=== PATIENT | male | born 1960 | race Caucasian/White ===

== ENCOUNTER 2018-07-03 09:01 | Outpatient (CLI) | payer BC, SELFPAY ==
[2018-07-03 09:25] LABS: Abs Immature Grans 0.03 k/cumm (0.0-0.09); Absolute Basophil Count 0.03 k/cumm (0.0-0.2); Absolute Eosinophil Count 0.21 k/cumm (0.0-0.7); Absolute Lymphocyte Count 2.05 k/cumm (1.2-3.4); Absolute Monocyte Count 0.68 k/cumm (0.11-0.7); Absolute Neutrophil Count 4.72 k/cumm (1.2-6.7); Basophils % 0.4; Eosinophils % 2.7; HGB 15.1 g/dL (13.5-17.5); Immature Grans % 0.4; Lymphocytes % 26.6; Mean Corp. HGB Concentration 33.6 g/dL (32.0-36.0); Mean Corpuscular Volume 92.4 fL (80-95); Mean Platelet Volume 10.8 fL (8.0-11.0); Monocytes % 8.8; Neutrophils % 61.1; Platelet Count 155 x1000/uL (130-400); RBC 4.87 m/cumm (4.50-6.00); RBC Distribution Width 13.1 % (11.8-14.1); White Blood Cell Count 7.72 k/cumm (4.4-10.8)
[2018-07-03 09:39] LABS: ALT 48 U/L (12-78); AST 28 U/L (15-37); Alkaline Phosphatase 70 U/L (46-116); Anion Gap 8.3 mmol/L (3-11); BUN 18 mg/dL (7-18); Bilirubin, Total 0.6 mg/dL (0.2-1.0); CO2 29.7 mmol/L (21.0-32.0); Calcium 9.1 mg/dL (8.5-10.1); Chloride 99 mmol/L (98-107); Glucose 187 mg/dL (70-100); Potassium 4.1 mmol/L (3.5-5.1); Sodium 137 mmol/L (136-145); Total Protein 7.2 g/dL (6.4-8.2)
[2018-07-04 10:30] LABS: PSA, Diagnostic 6.1 ng/ml (0-3.5)
== END 2018-07-03 09:21 ==
PROVIDERS: PCP Family Medicine; Visit Provider Internal Medicine
DX: C61 Malignant neoplasm of prostate (principal); C77.5 Secondary and unspecified malignant neoplasm of intrapelvic lymph nodes
CPT/HCPCS: 36415; 80053; 84403; 84153; 85025

== ENCOUNTER 2019-02-18 09:50 | Outpatient (CLI) | payer BC, SELFPAY ==
[2019-02-18 10:28] LABS: Abs Immature Grans 0.02 k/cumm (0.0-0.09); Absolute Basophil Count 0.02 k/cumm (0.0-0.2); Absolute Eosinophil Count 0.16 k/cumm (0.0-0.7); Absolute Lymphocyte Count 0.63 k/cumm (1.2-3.4); Absolute Monocyte Count 0.48 k/cumm (0.11-0.7); Absolute Neutrophil Count 3.17 k/cumm (1.2-6.7); Basophils % 0.4; Eosinophils % 3.6; HCT 40.3 % (40.0-50.0); HGB 13.6 g/dL (13.5-17.5); Immature Grans % 0.4; Lymphocytes % 14.1; Mean Corp. HGB Concentration 33.7 g/dL (32.0-36.0); Mean Corpuscular Volume 94.8 fL (80-95); Monocytes % 10.7; Neutrophils % 70.8; Platelet Count 125 x1000/uL (130-400); RBC 4.25 m/cumm (4.50-6.00); RBC Distribution Width 13.2 % (11.8-14.1); White Blood Cell Count 4.48 k/cumm (4.4-10.8)
[2019-02-18 11:21] LABS: ALT 48 U/L (12-78); AST 30 U/L (15-37); Albumin 3.9 g/dL (3.4-5.0); Alkaline Phosphatase 68 U/L (46-116); Anion Gap 9.7 mmol/L (3-11); BUN 18 mg/dL (7-18); Bilirubin, Total 0.4 mg/dL (0.2-1.0); CO2 28.3 mmol/L (21.0-32.0); CREATININE 0.79 mg/dL (0.70-1.30); Calcium 9.5 mg/dL (8.5-10.1); Chloride 98 mmol/L (98-107); Glucose 148 mg/dL (70-100); Potassium 4.3 mmol/L (3.5-5.1); Sodium 136 mmol/L (136-145); Total Protein 6.8 g/dL (6.4-8.2)
[2019-02-19 10:27] LABS: PSA, Diagnostic 0.3 ng/ml (0-3.5)
[2019-02-20 08:16] LABS: Testosterone, Total 7.4 ng/dL (240-950)
== END 2019-02-18 10:10 ==
PROVIDERS: PCP Family Medicine; Visit Provider Internal Medicine
DX: C61 Malignant neoplasm of prostate (principal); C77.5 Secondary and unspecified malignant neoplasm of intrapelvic lymph nodes
CPT/HCPCS: 36415; 80053; 84403; 84153; 85025

== ENCOUNTER 2019-06-12 08:06 | Outpatient (CLI) | payer BC, SELFPAY ==
[2019-06-12 08:43] LABS: Abs Immature Grans 0.03 k/cumm (0.0-0.09); Absolute Basophil Count 0.02 k/cumm (0.0-0.2); Absolute Eosinophil Count 0.18 k/cumm (0.0-0.7); Absolute Lymphocyte Count 0.67 k/cumm (1.2-3.4); Absolute Monocyte Count 0.42 k/cumm (0.11-0.7); Absolute Neutrophil Count 3.62 k/cumm (1.2-6.7); Basophils % 0.4; Eosinophils % 3.6; HCT 40.8 % (40.0-50.0); HGB 13.8 g/dL (13.5-17.5); Immature Grans % 0.6; Lymphocytes % 13.6; Mean Corp. HGB Concentration 33.8 g/dL (32.0-36.0); Mean Corpuscular Hemoglobin 31.7 pg (27.0-33.0); Mean Corpuscular Volume 93.6 fL (80-95); Mean Platelet Volume 9.9 fL (8.0-11.0); Monocytes % 8.5; Neutrophils % 73.3; Platelet Count 147 x1000/uL (130-400); RBC 4.36 m/cumm (4.50-6.00); RBC Distribution Width 13.2 % (11.8-14.1); White Blood Cell Count 4.94 k/cumm (4.4-10.8)
[2019-06-12 09:58] LABS: ALT 50 U/L (16-63); AST 33 U/L (15-37); Albumin 3.9 g/dL (3.4-5.0); Alkaline Phosphatase 70 U/L (46-116); Anion Gap 8.9 mmol/L (3-11); BUN 16 mg/dL (7-18); Bilirubin, Total 0.4 mg/dL (0.2-1.0); CO2 27.1 mmol/L (21.0-32.0); CREATININE 0.79 mg/dL (0.70-1.30); Calcium 9.2 mg/dL (8.5-10.1); Chloride 102 mmol/L (98-107); Glucose 125 mg/dL (70-100); Potassium 4.6 mmol/L (3.5-5.1); Sodium 138 mmol/L (136-145); Total Protein 6.8 g/dL (6.4-8.2)
[2019-06-13 10:26] LABS: PSA, Diagnostic 0.2 ng/ml (0-3.5)
[2019-06-14 14:00] LABS: Testosterone, Total 75 ng/dL (240-950)
== END 2019-06-12 08:26 ==
PROVIDERS: PCP Family Medicine; Visit Provider Internal Medicine
DX: C61 Malignant neoplasm of prostate (principal); C77.5 Secondary and unspecified malignant neoplasm of intrapelvic lymph nodes
CPT/HCPCS: 36415; 80053; 84403; 84153; 85025

== ENCOUNTER 2019-09-12 06:10 | Emergency (ER) | payer BC, SELFPAY ==
[2019-09-12 06:12] VITALS: BP 159/91; PULSE 88; RESP 18; TEMP 36.9; O2SAT 99
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
== END 2019-09-12 06:42 | disposition home or self-care (01) ==
LOC: ER 06:44
PROVIDERS: Emergency Provider Emergency Medicine; PCP Family Medicine
DX: S30.0XXA Contusion of lower back and pelvis, initial encounter (principal); M62.830 Muscle spasm of back; W00.0XXA Fall on same level due to ice and snow, initial encounter; I10 Essential (primary) hypertension
CPT/HCPCS: 99282; 99283

== ENCOUNTER 2019-10-04 15:42 | Outpatient (CLI) | payer BC, SELFPAY ==
[2019-10-04 16:03] LABS: Abs Immature Grans 0.02 k/cumm (0.0-0.09); Absolute Basophil Count 0.03 k/cumm (0.0-0.2); Absolute Eosinophil Count 0.13 k/cumm (0.0-0.7); Absolute Lymphocyte Count 1.18 k/cumm (1.2-3.4); Absolute Monocyte Count 0.74 k/cumm (0.11-0.7); Absolute Neutrophil Count 4.15 k/cumm (1.2-6.7); Basophils % 0.5; Eosinophils % 2.1; HCT 41.5 % (40.0-50.0); HGB 14.3 g/dL (13.5-17.5); Immature Grans % 0.3 %; Lymphocytes % 18.9; Mean Corp. HGB Concentration 34.5 g/dL (32.0-36.0); Mean Corpuscular Hemoglobin 31.4 pg (27.0-33.0); Mean Corpuscular Volume 91.2 fL (80-95); Mean Platelet Volume 10.4 fL (8.0-11.0); Monocytes % 11.8; Neutrophils % 66.4; Platelet Count 200 x1000/uL (130-400); RBC 4.55 m/cumm (4.50-6.00); White Blood Cell Count 6.25 k/cumm (4.4-10.8)
[2019-10-04 16:58] LABS: ALT 68 U/L (16-63); AST 36 U/L (15-37); Albumin 4.4 g/dL (3.4-5.0); Alkaline Phosphatase 116 U/L (46-116); Anion Gap 10.4 mmol/L (3-11); BUN 18 mg/dL (7-18); Bilirubin, Total 0.3 mg/dL (0.2-1.0); CO2 28.6 mmol/L (21.0-32.0); Calcium 9.6 mg/dL (8.5-10.1); Chloride 102 mmol/L (98-107); Glucose 113 mg/dL (74-106); Potassium 4.6 mmol/L (3.5-5.1); Sodium 141 mmol/L (136-145); Total Protein 7.3 g/dL (6.4-8.2)
[2019-10-07 11:30] LABS: PSA, Diagnostic 0.2 ng/mL (0.0-4.5)
[2019-10-08 16:37] LABS: Testosterone, Total <7.0 ng/dL (240-950)
== END 2019-10-04 16:02 ==
PROVIDERS: PCP Family Medicine; Visit Provider Internal Medicine
DX: C61 Malignant neoplasm of prostate (principal); C77.5 Secondary and unspecified malignant neoplasm of intrapelvic lymph nodes
CPT/HCPCS: 36415; 80053; 84403; 84153; 85025

== ENCOUNTER 2019-12-16 00:59 | Outpatient (CLI) | payer BC, SELFPAY ==
--- NOTE | 2019-12-16 09:00 | ETT_ITS ---
APPROVED REPORT Exam: Exercise Treadmill Patient Location: Out-Patient Room/Bed: Stress Nurse: Dora Morrow RN BMI: 27.97 Baseline Rhythm: Sinus Rhythm Indications: Precordial pain. Pt reports he needs clearance to continue taking his Lupron injections. Medical History Medical History: Cancer. , HTN, Hyperlipidemia (bordeline). Cardiac Medications: Candesartan. Amlodipine., Allergies: Honey bee venum Cardiac Risk Factors: HTN, Hyperlipidemia, FHX of CAD (brother cardiac stent). Lupron tx. Pretest Chest Pain Characteristics: No chest pain Exercise History: Physically active Lung Sounds: Clear to auscultation Heart Sounds: Regular Stress Test Details Test: Exercise stress testing was performed using a Samuel protocol. Rest Stress HR Resting HR Supine: 85 bpm Max Heart Rate (APMHR): 160 bpm Resting HR Standin bpm Target HR (85% APMHR): 136 bpm Max HR Achieved: 145 bpm % of APMHR: 90 Recovery HR: 94 bpm HR response to stress: Normal HR response to stress BP Resting BP Supine: 152/80 mmHg Resting BP Standin/82 mmHg Max BP: 188/78 mmHg Recovery BP: 160/72 mmHg BP response to stress: Normal blood pressure response to stress. ECG Resting ECG: Sinus Rhythm Stress ECG: Sinus Tachycardia ST Change: No significant ST segment changes Arrhythmia: Rare PVC Recovery ECG: Sinus Rhythm Recovery ST Change: No significant ST segment changes Clinical Reason for Termination: Fatigue, Leg pain. Stress Symptoms: Leg Fatigue Exercise duration: 08 min01 sec Highest Stage Reached: Stage 3: 3.4 mph at 14% grade. Exercise capacity: 10.16 METs Functional Capacity: Average Capacity Stress ECG Conclusion 1. Good exercise tolerance of 10 METS without symptoms to suggest angina 2. Normal heart rate and blood pressure response to exercise 3. No clinical or electrocardiographic evidence of myocardial ischemia. Patient achieved 90% of pred icted heart rate for age 3. There were no significant dysrhythmias Protocol Used: Samuel Protocol Stress Test Summary STAGE Time (mins) Speed (mph) Grade (%) HR BP SYMPTOMS METS Supine 85 152/80 Standing 94 128/82 1 3 1.7 10 115 144/76 4.6 2 6 2.5 12 132 160/80 7 3 9 3.4 14 145 10.2 12.9 17.2 1 min recovery 125 188/78 6 min recovery 98 172/76 9 min recovery 94 160/72
== END 2019-12-16 01:19 ==
PROVIDERS: PCP Family Medicine; Visit Provider Family Medicine
DX: R07.89 Other chest pain (principal); C61 Malignant neoplasm of prostate; Z79.899 Other long term (current) drug therapy; I10 Essential (primary) hypertension; E78.5 Hyperlipidemia, unspecified; Z82.49 Family history of ischemic heart disease and other diseases of the circulatory system
CPT/HCPCS: 93017

== ENCOUNTER 2020-01-21 03:01 | Outpatient (CLI) | payer BC, SELFPAY ==
[2020-01-21 12:47] LABS: Abs Immature Grans 0.04 k/cumm (0.0-0.09); Absolute Basophil Count 0.02 k/cumm (0.0-0.2); Absolute Eosinophil Count 0.15 k/cumm (0.0-0.7); Absolute Lymphocyte Count 0.94 k/cumm (1.2-3.4); Absolute Monocyte Count 0.63 k/cumm (0.11-0.7); Absolute Neutrophil Count 5.34 k/cumm (1.2-6.7); Basophils % 0.3; Eosinophils % 2.1; HCT 40.9 % (40.0-50.0); HGB 14.3 g/dL (13.5-17.5); Immature Grans % 0.6 %; Lymphocytes % 13.2; Mean Corpuscular Hemoglobin 32.6 pg (27.0-33.0); Mean Corpuscular Volume 93.4 fL (80-95); Monocytes % 8.8; Platelet Count 179 x1000/uL (130-400); RBC 4.38 m/cumm (4.50-6.00); RBC Distribution Width 13.2 % (11.8-14.1); White Blood Cell Count 7.12 k/cumm (4.4-10.8)
[2020-01-21 13:00] LABS: ALT 77 U/L (16-63); AST 78 U/L (15-37); Albumin 4.2 g/dL (3.4-5.0); Alkaline Phosphatase 78 U/L (46-116); Anion Gap 6.8 mmol/L (3-11); BUN 16 mg/dL (7-18); Bilirubin, Total 0.5 mg/dL (0.2-1.0); CO2 29.2 mmol/L (21.0-32.0); CREATININE 1.07 mg/dL (0.70-1.30); Calcium 9.4 mg/dL (8.5-10.1); Chloride 99 mmol/L (98-107); Glucose 133 mg/dL (74-106); Potassium 4.2 mmol/L (3.5-5.1); Sodium 135 mmol/L (136-145); Total Protein 7.6 g/dL (6.4-8.2)
[2020-01-22 17:44] LABS: PSA, Ultrasensitive 0.27 ng/mL (<= 4.5)
[2020-01-24 02:40] LABS: Testosterone, Total 84 ng/dL (240-950)
== END 2020-01-21 03:21 ==
PROVIDERS: PCP Family Medicine; Visit Provider Internal Medicine
DX: C61 Malignant neoplasm of prostate (principal)
CPT/HCPCS: 36415; 80053; 84153; 84403; 85025

== ENCOUNTER 2020-04-27 11:08 | Outpatient (CLI) | payer BC, SELFPAY ==
[2020-04-27 13:38] LABS: Abs Immature Grans 0.05 10^3/uL (0.0-0.06); Absolute Basophil Count 0.03 10^3/uL (0.0-0.2); Absolute Eosinophil Count 0.16 10^3/uL (0.0-0.7); Absolute Lymphocyte Count 0.78 10^3/uL (1.2-3.4); Absolute Monocyte Count 0.42 10^3/uL (0.1-0.8); Absolute Neutrophil Count 3.74 10^3/uL (1.2-6.7); Basophils % 0.6; Eosinophils % 3.1; HCT 42.1 % (40.0-50.0); HGB 14.1 g/dL (13.5-17.5); Lymphocytes % 15.1; MCH 31.7 pg (27.0-33.0); MCHC 33.5 % (32.0-36.0); MCV 94.6 fL (80-95); MPV 10.6 fL (8.0-11.0); Monocytes % 8.1; Neutrophils % 72.1; Nucleated RBC 0 %; Platelet Count 136 10^3/uL (130-400); RBC 4.45 10^6/uL (4.36-5.78); RDW 12.6 % (11.8-14.1); RDW-SD 43.8 fL; WBC 5.18 10^3/uL (4.4-10.8)
[2020-04-27 14:27] LABS: ALT 71 U/L (16-63); AST 82 U/L (15-37); Albumin 4.1 g/dL (3.4-5.0); Alkaline Phosphatase 75 U/L (46-116); Anion Gap 7.3 mmol/L (3-11); BUN 13 mg/dL (7-18); Bilirubin, Total 0.4 mg/dL (0.2-1.0); CO2 28.7 mmol/L (21.0-32.0); CREATININE 0.69 mg/dL (0.70-1.30); Calcium 9.3 mg/dL (8.5-10.1); Chloride 98 mmol/L (98-107); Glucose 145 mg/dL (74-106); Potassium 4.2 mmol/L (3.5-5.1); Sodium 134 mmol/L (136-145)
[2020-04-30 11:01] LABS: Testosterone, Total <7.0 ng/dL (240-950)
== END 2020-04-27 11:28 ==
PROVIDERS: PCP Family Medicine; Visit Provider Internal Medicine
DX: C61 Malignant neoplasm of prostate (principal); C77.5 Secondary and unspecified malignant neoplasm of intrapelvic lymph nodes
CPT/HCPCS: 36415; 80053; 84153; 84403; 85025

== ENCOUNTER 2020-08-10 03:36 | Outpatient (CLI) | payer BC, SELFPAY ==
[2020-08-10 11:44] LABS: Abs Immature Grans 0.03 10^3/uL (0.0-0.06); Absolute Basophil Count 0.03 10^3/uL (0.0-0.2); Absolute Eosinophil Count 0.16 10^3/uL (0.0-0.7); Absolute Lymphocyte Count 0.92 10^3/uL (1.2-3.4); Absolute Monocyte Count 0.54 10^3/uL (0.1-0.8); Absolute Neutrophil Count 4.54 10^3/uL (1.2-6.7); Basophils % 0.5; Eosinophils % 2.6; HCT 41.3 % (40.0-50.0); HGB 13.9 g/dL (13.5-17.5); Immature Grans % 0.5; Lymphocytes % 14.8; MCH 31.8 pg (27.0-33.0); MCHC 33.7 % (32.0-36.0); MCV 94.5 fL (80-95); Monocytes % 8.7; Neutrophils % 72.9; Nucleated RBC 0 %; Platelet Count 129 10^3/uL (130-400); RBC 4.37 10^6/uL (4.36-5.78); RDW 12.8 % (11.8-14.1); RDW-SD 44.1 fL; WBC 6.22 10^3/uL (4.4-10.8)
[2020-08-10 12:51] LABS: ALT 61 U/L (16-63); AST 52 U/L (15-37); Albumin 4.2 g/dL (3.4-5.0); Alkaline Phosphatase 80 U/L (46-116); Anion Gap 12.5 mmol/L (3-11); BUN 14 mg/dL (7-18); Bilirubin, Total 0.5 mg/dL (0.2-1.0); CO2 24.5 mmol/L (21.0-32.0); CREATININE 0.78 mg/dL (0.70-1.30); Chloride 99 mmol/L (98-107); Glucose 165 mg/dL (74-106); Potassium 4.4 mmol/L (3.5-5.1); Sodium 136 mmol/L (136-145); Total Protein 7.1 g/dL (6.4-8.2)
[2020-08-11 14:10] LABS: PSA, Ultrasensitive 0.07 ng/mL (<= 4.5)
[2020-08-13 16:18] LABS: Testosterone, Total 9.1 ng/dL (240-950)
== END 2020-08-10 03:56 ==
PROVIDERS: PCP Family Medicine; Visit Provider Internal Medicine
DX: C61 Malignant neoplasm of prostate (principal); C77.5 Secondary and unspecified malignant neoplasm of intrapelvic lymph nodes
CPT/HCPCS: 36415; 80053; 84153; 84403; 85025

== ENCOUNTER 2020-11-10 02:34 | Outpatient (CLI) | payer BC, SELFPAY ==
[2020-11-10 11:12] LABS: Abs Immature Grans 0.02 10^3/uL (0.0-0.06); Absolute Basophil Count 0.03 10^3/uL (0.0-0.2); Absolute Eosinophil Count 0.16 10^3/uL (0.0-0.7); Absolute Lymphocyte Count 0.84 10^3/uL (1.2-3.4); Absolute Monocyte Count 0.51 10^3/uL (0.1-0.8); Absolute Neutrophil Count 3.93 10^3/uL (1.2-6.7); Basophils % 0.5; Eosinophils % 2.9; HCT 42.2 % (40.0-50.0); HGB 14.5 g/dL (13.5-17.5); Immature Grans % 0.4; Lymphocytes % 15.3; MCH 32.4 pg (27.0-33.0); MCHC 34.4 % (32.0-36.0); MCV 94.2 fL (80-95); MPV 10.7 fL (8.0-11.0); Monocytes % 9.3; Neutrophils % 71.6; Nucleated RBC 0 %; Platelet Count 126 10^3/uL (130-400); RBC 4.48 10^6/uL (4.36-5.78); RDW 12.8 % (11.8-14.1); RDW-SD 44.2 fL; WBC 5.49 10^3/uL (4.4-10.8)
[2020-11-10 11:31] LABS: ALT 66 U/L (16-63); AST 52 U/L (15-37); Albumin 4.1 g/dL (3.4-5.0); Alkaline Phosphatase 84 U/L (46-116); Anion Gap 8.8 mmol/L (3-11); BUN 11 mg/dL (7-18); Bilirubin, Total 0.6 mg/dL (0.2-1.0); CO2 28.2 mmol/L (21.0-32.0); CREATININE 0.8 mg/dL (0.70-1.30); Calcium 9.3 mg/dL (8.5-10.1); Chloride 97 mmol/L (98-107); Glucose 199 mg/dL (74-106); Potassium 4.2 mmol/L (3.5-5.1); Sodium 134 mmol/L (136-145); Total Protein 7.5 g/dL (6.4-8.2)
[2020-11-12 11:46] LABS: PSA, Ultrasensitive 0.07 ng/mL (<= 4.5)
[2020-11-14 11:54] LABS: Testosterone, Total 8.1 ng/dL (240-950)
== END 2020-11-10 02:35 | disposition home or self-care (01) ==
LOC: LBO 02:34
PROVIDERS: PCP Family Medicine; Visit Provider Internal Medicine
DX: C61 Malignant neoplasm of prostate (principal); C77.5 Secondary and unspecified malignant neoplasm of intrapelvic lymph nodes
CPT/HCPCS: 36415; 80053; 84153; 84403; 85025

== ENCOUNTER 2021-02-10 04:27 | Outpatient (CLI) | payer BC, SELFPAY ==
[2021-02-10 09:17] LABS: Abs Immature Grans 0.03 10^3/uL (0.0-0.06); Absolute Basophil Count 0.04 10^3/uL (0.0-0.2); Absolute Eosinophil Count 0.15 10^3/uL (0.0-0.7); Absolute Lymphocyte Count 1.16 10^3/uL (1.2-3.4); Absolute Monocyte Count 0.47 10^3/uL (0.1-0.8); Absolute Neutrophil Count 4.14 10^3/uL (1.2-6.7); Basophils % 0.7; Eosinophils % 2.5; HCT 42.7 % (40.0-50.0); HGB 14.5 g/dL (13.5-17.5); Immature Grans % 0.5; Lymphocytes % 19.4; MCH 32.1 pg (27.0-33.0); MCV 94.5 fL (80-95); MPV 11.1 fL (8.0-11.0); Monocytes % 7.8; Neutrophils % 69.1; Nucleated RBC 0 %; Platelet Count 146 10^3/uL (130-400); RBC 4.52 10^6/uL (4.36-5.78); RDW 13.2 % (11.8-14.1); RDW-SD 45.6 fL; WBC 5.99 10^3/uL (4.4-10.8)
[2021-02-10 10:11] LABS: ALT 97 U/L (16-63); AST 77 U/L (15-37); Albumin 4.2 g/dL (3.4-5.0); Alkaline Phosphatase 83 U/L (46-116); Anion Gap 13.5 mmol/L (3-11); BUN 16 mg/dL (7-18); Bilirubin, Total 0.3 mg/dL (0.2-1.0); CO2 25.5 mmol/L (21.0-32.0); CREATININE 0.8 mg/dL (0.70-1.30); Calcium 9.7 mg/dL (8.5-10.1); Chloride 101 mmol/L (98-107); Glucose 140 mg/dL (74-106); Potassium 4.3 mmol/L (3.5-5.1); Sodium 140 mmol/L (136-145); Total Protein 7.6 g/dL (6.4-8.2)
[2021-02-11 17:32] LABS: PSA, Ultrasensitive 0.07 ng/mL (<= 4.5)
[2021-02-13 11:33] LABS: Testosterone, Total <7.0 ng/dL (240-950)
== END 2021-02-10 04:28 | disposition home or self-care (01) ==
LOC: LBO 04:27
PROVIDERS: PCP Family Medicine; Visit Provider Internal Medicine
DX: C61 Malignant neoplasm of prostate (principal); C77.5 Secondary and unspecified malignant neoplasm of intrapelvic lymph nodes
CPT/HCPCS: 36415; 80053; 84153; 84403; 85025

== ENCOUNTER 2021-05-25 07:38 | Outpatient (CLI) | payer BC, SELFPAY ==
[2021-05-25 08:46] LABS: Abs Immature Grans 0.02 10^3/uL (0.0-0.06); Absolute Basophil Count 0.04 10^3/uL (0.0-0.2); Absolute Eosinophil Count 0.19 10^3/uL (0.0-0.7); Absolute Lymphocyte Count 1.04 10^3/uL (1.2-3.4); Absolute Monocyte Count 0.44 10^3/uL (0.1-0.8); Absolute Neutrophil Count 2.66 10^3/uL (1.2-6.7); Basophils % 0.9; Eosinophils % 4.3; HGB 13.8 g/dL (13.5-17.5); Immature Grans % 0.5; Lymphocytes % 23.7; MCH 32.2 pg (27.0-33.0); MCHC 34.5 % (32.0-36.0); MCV 93.2 fL (80-95); MPV 11.1 fL (8.0-11.0); Neutrophils % 60.6; Nucleated RBC 0 %; Platelet Count 125 10^3/uL (130-400); RBC 4.29 10^6/uL (4.36-5.78); RDW 12.6 % (11.8-14.1); RDW-SD 43.3 fL; WBC 4.39 10^3/uL (4.4-10.8)
[2021-05-25 10:58] LABS: ALT 58 U/L (16-63); AST 42 U/L (15-37); Albumin 4.1 g/dL (3.4-5.0); Alkaline Phosphatase 67 U/L (46-116); Anion Gap 11.4 mmol/L (3-11); BUN 12 mg/dL (7-18); Bilirubin, Total 0.3 mg/dL (0.2-1.0); CO2 27.6 mmol/L (21.0-32.0); CREATININE 0.7 mg/dL (0.70-1.30); Calcium 9.6 mg/dL (8.5-10.1); Chloride 104 mmol/L (98-107); Glucose 129 mg/dL (74-106); Potassium 4.3 mmol/L (3.5-5.1); Sodium 143 mmol/L (136-145)
[2021-05-26 13:09] LABS: PSA, Ultrasensitive 0.05 ng/mL (<= 4.5)
== END 2021-05-25 07:39 | disposition home or self-care (01) ==
PROVIDERS: PCP Family Medicine; Visit Provider Internal Medicine
DX: C61 Malignant neoplasm of prostate (principal); C77.5 Secondary and unspecified malignant neoplasm of intrapelvic lymph nodes
CPT/HCPCS: 36415; 80053; 84153; 84403; 85025

== ENCOUNTER 2021-08-20 03:47 | Outpatient (CLI) | payer BC, SELFPAY ==
[2021-08-20 09:14] LABS: Abs Immature Grans 0.04 10^3/uL (0.0-0.06); Absolute Basophil Count 0.04 10^3/uL (0.0-0.2); Absolute Lymphocyte Count 1.64 10^3/uL (1.2-3.4); Absolute Monocyte Count 0.68 10^3/uL (0.1-0.8); Absolute Neutrophil Count 4.51 10^3/uL (1.2-6.7); Basophils % 0.6; Eosinophils % 2.8; HCT 43.4 % (40.0-50.0); HGB 14.4 g/dL (13.5-17.5); Immature Grans % 0.6; Lymphocytes % 23.1; MCH 31.5 pg (27.0-33.0); MCHC 33.2 % (32.0-36.0); MPV 10.6 fL (8.0-11.0); Monocytes % 9.6; Neutrophils % 63.3; Nucleated RBC 0 %; Platelet Count 169 10^3/uL (130-400); RBC 4.57 10^6/uL (4.36-5.78); RDW-SD 45.3 fL; WBC 7.11 10^3/uL (4.4-10.8)
[2021-08-20 09:29] LABS: ALT 45 U/L (16-63); AST 29 U/L (15-37); Albumin 4.3 g/dL (3.4-5.0); Alkaline Phosphatase 67 U/L (46-116); BUN 21 mg/dL (7-18); Bilirubin, Total 0.3 mg/dL (0.2-1.0); CREATININE 0.8 mg/dL (0.70-1.30); Chloride 100 mmol/L (98-107); Glucose 106 mg/dL (74-106); Potassium 3.9 mmol/L (3.5-5.1); Sodium 136 mmol/L (136-145); Total Protein 7.6 g/dL (6.4-8.2)
[2021-08-21 12:22] LABS: PSA, Ultrasensitive 0.04 ng/mL (<= 4.5)
[2021-08-24 11:40] LABS: Testosterone, Total <7.0 ng/dL (240-950)
== END 2021-08-20 03:48 | disposition home or self-care (01) ==
LOC: LBO 03:48
PROVIDERS: PCP Family Medicine; Visit Provider Internal Medicine
DX: C61 Malignant neoplasm of prostate (principal); C77.5 Secondary and unspecified malignant neoplasm of intrapelvic lymph nodes
CPT/HCPCS: 36415; 80053; 84153; 84403; 85025

== ENCOUNTER 2021-10-13 01:43 | Outpatient (CLI) | payer BC, SELFPAY ==
[2021-10-13 08:33] LABS: Abs Immature Grans 0.02 10^3/uL (0.0-0.06); Absolute Basophil Count 0.04 10^3/uL (0.0-0.2); Absolute Eosinophil Count 0.16 10^3/uL (0.0-0.7); Absolute Lymphocyte Count 1.36 10^3/uL (1.2-3.4); Absolute Monocyte Count 0.55 10^3/uL (0.1-0.8); Absolute Neutrophil Count 4.03 10^3/uL (1.2-6.7); Basophils % 0.6; Eosinophils % 2.6; HCT 40.2 % (40.0-50.0); HGB 13.6 g/dL (13.5-17.5); Immature Grans % 0.3; Lymphocytes % 22.1; MCH 31.8 pg (27.0-33.0); MCHC 33.8 % (32.0-36.0); MCV 93.9 fL (80-95); Monocytes % 8.9; Neutrophils % 65.5; Nucleated RBC 0 %; Platelet Count 142 10^3/uL (130-400); RBC 4.28 10^6/uL (4.36-5.78); RDW-SD 44.3 fL; WBC 6.16 10^3/uL (4.4-10.8)
[2021-10-13 08:50] LABS: ALT 37 U/L (16-63); AST 32 U/L (15-37); Albumin 4.2 g/dL (3.4-5.0); Alkaline Phosphatase 64 U/L (46-116); Anion Gap 11.4 mmol/L (3-11); BUN 12 mg/dL (7-18); Bilirubin, Total 0.4 mg/dL (0.2-1.0); CO2 25.6 mmol/L (21.0-32.0); CREATININE 0.7 mg/dL (0.70-1.30); Calcium 9.6 mg/dL (8.5-10.1); Chloride 99 mmol/L (98-107); Glucose 119 mg/dL (74-106); Potassium 3.7 mmol/L (3.5-5.1); Sodium 136 mmol/L (136-145); Total Protein 7.6 g/dL (6.4-8.2)
[2021-10-14 15:40] LABS: PSA, Ultrasensitive 0.04 ng/mL (<= 4.5)
[2021-10-15 11:30] LABS: Testosterone, Total <7.0 ng/dL (240-950)
== END 2021-10-13 01:44 | disposition home or self-care (01) ==
LOC: LBO 01:44
PROVIDERS: PCP Family Medicine; Visit Provider Internal Medicine
DX: C61 Malignant neoplasm of prostate (principal); C77.5 Secondary and unspecified malignant neoplasm of intrapelvic lymph nodes
CPT/HCPCS: 36415; 80053; 84153; 84403; 85025

== ENCOUNTER 2021-11-17 15:39 | Outpatient (CLI) | payer MEDICAID, SELFPAY ==
[2021-11-17 12:57] LABS: Abs Immature Grans 0.02 10^3/uL (0.0-0.06); Absolute Basophil Count 0.03 10^3/uL (0.0-0.2); Absolute Eosinophil Count 0.09 10^3/uL (0.0-0.7); Absolute Lymphocyte Count 0.98 10^3/uL (1.2-3.4); Absolute Monocyte Count 0.59 10^3/uL (0.1-0.8); Absolute Neutrophil Count 4.53 10^3/uL (1.2-6.7); Basophils % 0.5; Eosinophils % 1.4; HCT 40.1 % (40.0-50.0); HGB 13.9 g/dL (13.5-17.5); Immature Grans % 0.3; Lymphocytes % 15.7; MCH 32.5 pg (27.0-33.0); MCHC 34.7 % (32.0-36.0); MCV 93.7 fL (80-95); MPV 10.4 fL (8.0-11.0); Monocytes % 9.5; Neutrophils % 72.6; Nucleated RBC 0 %; Platelet Count 136 10^3/uL (130-400); RBC 4.28 10^6/uL (4.36-5.78); RDW 13.1 % (11.8-14.1); RDW-SD 45.1 fL; WBC 6.24 10^3/uL (4.4-10.8)
[2021-11-17 14:19] LABS: ALT 30 U/L (16-63); AST 17 U/L (15-37); Albumin 4.1 g/dL (3.4-5.0); Alkaline Phosphatase 57 U/L (46-116); Anion Gap 9.5 mmol/L (3-11); BUN 18 mg/dL (7-18); Bilirubin, Total 0.5 mg/dL (0.2-1.0); CO2 26.5 mmol/L (21.0-32.0); Calcium 8.8 mg/dL (8.5-10.1); Chloride 100 mmol/L (98-107); Glucose 119 mg/dL (74-106); Potassium 4.1 mmol/L (3.5-5.1); Sodium 136 mmol/L (136-145); Total Protein 6.9 g/dL (6.4-8.2)
[2021-11-18 17:48] LABS: PSA, Ultrasensitive 0.04 ng/mL (<= 4.5)
[2021-11-23 10:06] LABS: Testosterone, Total <7.0 ng/dL (240-950)
== END 2021-11-17 15:40 | disposition home or self-care (01) ==
PROVIDERS: PCP Family Medicine; Visit Provider Internal Medicine
DX: C61 Malignant neoplasm of prostate (principal); C77.5 Secondary and unspecified malignant neoplasm of intrapelvic lymph nodes
CPT/HCPCS: 36415; 80053; 84153; 84403; 85025

== ENCOUNTER 2022-02-22 01:52 | Outpatient (CLI) | payer MEDICAID, SELFPAY | END 2022-02-22 01:53 | disposition home or self-care (01) | LOC: LBO 01:52 | PROVIDERS: PCP Family Medicine; Visit Provider Internal Medicine ==

== ENCOUNTER 2022-03-03 03:57 | Outpatient (CLI) | payer MEDICAID, SELFPAY ==
[2022-03-03 12:39] LABS: Abs Immature Grans 0.04 10^3/uL (0.0-0.06); Absolute Basophil Count 0.03 10^3/uL (0.0-0.2); Absolute Eosinophil Count 0.04 10^3/uL (0.0-0.7); Absolute Lymphocyte Count 1.19 10^3/uL (1.2-3.4); Absolute Neutrophil Count 4.16 10^3/uL (1.2-6.7); Basophils % 0.5; Eosinophils % 0.7; HCT 39.8 % (40.0-50.0); HGB 13.5 g/dL (13.5-17.5); Immature Grans % 0.7; MCH 31.3 pg (27.0-33.0); MCHC 33.9 % (32.0-36.0); MCV 92 fL (80-95); MPV 10.6 fL (8.0-11.0); Monocytes % 8.4; Neutrophils % 69.7; Platelet Count 144 10^3/uL (130-400); RBC 4.32 10^6/uL (4.36-5.78); RDW 12.9 % (11.8-14.1); RDW-SD 43.4 fL; WBC 5.96 10^3/uL (4.4-10.8)
[2022-03-03 15:20] LABS: ALT 30 U/L (16-63); AST 26 U/L (15-37); Albumin 4.4 g/dL (3.4-5.0); Alkaline Phosphatase 68 U/L (46-116); BUN 12 mg/dL (7-18); Bilirubin, Total 0.7 mg/dL (0.2-1.0); CREATININE 0.7 mg/dL (0.70-1.30); Calcium 9.6 mg/dL (8.5-10.1); Chloride 99 mmol/L (98-107); Glucose 117 mg/dL (74-106); Potassium 4.5 mmol/L (3.5-5.1); Sodium 135 mmol/L (136-145)
[2022-03-04 18:39] LABS: PSA, Ultrasensitive 0.02 ng/mL (<= 4.5)
[2022-03-06 18:52] LABS: Testosterone, Total <7.0 ng/dL (240-950)
== END 2022-03-03 03:58 | disposition home or self-care (01) ==
LOC: LBO 03:57
PROVIDERS: PCP Family Medicine; Visit Provider Internal Medicine
DX: C61 Malignant neoplasm of prostate (principal); C77.5 Secondary and unspecified malignant neoplasm of intrapelvic lymph nodes
CPT/HCPCS: 36415; 80053; 84153; 84403; 85025

== ENCOUNTER 2022-03-18 13:15 | Outpatient (CLI) | payer MEDICAID, SELFPAY ==
--- NOTE | 2022-03-18 13:15 | RT.EKG_ITS ---
APPROVED REPORT Exam: Resting ECG Reason for Exam: HTN Patient Location: O HR:82 bpm ECG Measurements Heart Rate 82 AXIS NV 133 P 44 QRSd 98 QRS 26 QT 391 T 21 QTc 457 Conclusion Sinus rhythm...normal P axis, V-rate 50- 99 Baseline wander in lead(s) II,III,aVF,V1,V2,V3,V4,V5,V6 Artifact, otherwise normal
== END 2022-03-18 13:16 | disposition home or self-care (01) ==
LOC: DI.CARD 13:16
PROVIDERS: PCP Family Medicine; Visit Provider Internal Medicine Cardiovascular Disease
DX: I10 Essential (primary) hypertension (principal)
CPT/HCPCS: 93010

== ENCOUNTER 2022-06-03 12:22 | Outpatient (CLI) | payer MEDICAID, SELFPAY ==
[2022-06-03 10:53] LABS: Abs Immature Grans 0.03 10^3/uL (0.0-0.06); Absolute Basophil Count 0.04 10^3/uL (0.0-0.2); Absolute Eosinophil Count 0.18 10^3/uL (0.0-0.7); Absolute Lymphocyte Count 1.42 10^3/uL (1.2-3.4); Absolute Neutrophil Count 2.99 10^3/uL (1.2-6.7); Basophils % 0.8; Eosinophils % 3.5; HCT 39.5 % (40.0-50.0); HGB 13.9 g/dL (13.5-17.5); Immature Grans % 0.6; Lymphocytes % 27.5; MCH 32.3 pg (27.0-33.0); MCHC 35.2 % (32.0-36.0); MCV 92 fL (80-95); MPV 10.3 fL (8.0-11.0); Monocytes % 9.7; Neutrophils % 57.9; Platelet Count 141 10^3/uL (130-400); RBC 4.31 10^6/uL (4.36-5.78); RDW 12.5 % (11.8-14.1); RDW-SD 42.1 fL; WBC 5.16 10^3/uL (4.4-10.8)
[2022-06-03 11:22] LABS: ALT 29 U/L (16-63); AST 27 U/L (15-37); Alkaline Phosphatase 66 U/L (46-116); Anion Gap 8.5 mmol/L (3-11); BUN 14 mg/dL (7-18); Bilirubin, Total 0.7 mg/dL (0.2-1.0); CO2 27.5 mmol/L (21.0-32.0); CREATININE 0.9 mg/dL (0.70-1.30); Calcium 9.6 mg/dL (8.5-10.1); Chloride 99 mmol/L (98-107); Estimated GFR 96.57 (mL/min/1.73m2); Glucose 129 mg/dL (74-106); Potassium 3.7 mmol/L (3.5-5.1); Sodium 135 mmol/L (136-145); Total Protein 7.2 g/dL (6.4-8.2)
[2022-06-07 09:57] LABS: PSA, Ultrasensitive <0.01 ng/mL (<= 4.5)
[2022-06-08 16:21] LABS: Testosterone, Total <7.0 ng/dL (240-950)
== END 2022-06-03 12:23 | disposition home or self-care (01) ==
LOC: LBO 12:26
PROVIDERS: PCP Family Medicine; Visit Provider Nurse Practitioner Family
DX: C61 Malignant neoplasm of prostate (principal); C77.5 Secondary and unspecified malignant neoplasm of intrapelvic lymph nodes
CPT/HCPCS: 36415; 80053; 84153; 84403; 85025

== ENCOUNTER 2022-06-10 14:14 | Outpatient (REF) | payer MEDICAID, SELFPAY ==
--- NOTE | 2022-06-10 14:00 | PAPNONF_PTH ---
PATIENT: Rodolfo Costello LOC: [facility] U#:[id number] AGE/SX: 61/M ROOM: RE06/10/[address]: Cory Washington MD : [id number] BED: DIS: 06/10/2022 SPEC #: [id number] RECD: 06/10/22 18:37 STATUS: JOCELYN REQ #: [id number] PARI: 06/10/22 14:[address]: Cory Washington DEPT: [facility] Cytology RECD BY: Marilyn Bonilla ENTERED: 06/10/22 18:38 SP TYPE: JAK MARTINS DR: Trey Giraldo Tissues: 1 - BODY FLUID CYTO(SPUTUM/URINE)[facility] Procedures: BODY FLUID CYTO(URINE/SPUTUM) Comments: [id number] (TOTAL VOLUME = 30 ml) (30 ml URINE & 30 ml CYTOLYT ADDED)
== END 2022-06-10 14:15 | disposition home or self-care (01) ==
LOC: LBN 14:14
PROVIDERS: PCP Family Medicine; Visit Provider Urology
DX: R31.0 Gross hematuria (principal)
CPT/HCPCS: 88104

== ENCOUNTER 2022-09-06 02:12 | Outpatient (CLI) | payer MEDICAID, SELFPAY ==
[2022-09-06 13:30] LABS: Abs Immature Grans 0.04 10^3/uL (0.0-0.06); Absolute Basophil Count 0.03 10^3/uL (0.0-0.2); Absolute Eosinophil Count 0.13 10^3/uL (0.0-0.7); Absolute Lymphocyte Count 1.22 10^3/uL (1.2-3.4); Absolute Monocyte Count 0.49 10^3/uL (0.1-0.8); Absolute Neutrophil Count 2.96 10^3/uL (1.2-6.7); Basophils % 0.6; Eosinophils % 2.7; HGB 14.1 g/dL (13.5-17.5); Immature Grans % 0.8; Lymphocytes % 25.1; MCH 31.3 pg (27.0-33.0); MCHC 34.4 % (32.0-36.0); MCV 91 fL (80-95); MPV 10.2 fL (8.0-11.0); Monocytes % 10.1; Neutrophils % 60.7; Platelet Count 167 10^3/uL (130-400); RDW-SD 43.2 fL; WBC 4.87 10^3/uL (4.4-10.8)
[2022-09-06 13:52] LABS: ALT 21 U/L (16-63); AST 20 U/L (15-37); Albumin 4.1 g/dL (3.4-5.0); Alkaline Phosphatase 116 U/L (46-116); Anion Gap 6.5 mmol/L (3-11); BUN 16 mg/dL (7-18); Bilirubin, Total 0.5 mg/dL (0.2-1.0); CO2 31.5 mmol/L (21.0-32.0); CREATININE 0.9 mg/dL (0.70-1.30); Calcium 9.5 mg/dL (8.5-10.1); Chloride 101 mmol/L (98-107); Estimated GFR 95.97 (mL/min/1.73m2); Glucose 121 mg/dL (74-106); Potassium 3.7 mmol/L (3.5-5.1); Sodium 139 mmol/L (136-145); Total Protein 7.4 g/dL (6.4-8.2)
[2022-09-07 19:33] LABS: PSA, Ultrasensitive <0.01 ng/mL (<= 4.5)
[2022-09-10 01:22] LABS: Testosterone, Total <7.0 ng/dL (240-950)
== END 2022-09-06 02:13 | disposition home or self-care (01) ==
LOC: LBO 02:12
PROVIDERS: PCP Family Medicine; Visit Provider Nurse Practitioner Family
DX: C61 Malignant neoplasm of prostate (principal); C77.5 Secondary and unspecified malignant neoplasm of intrapelvic lymph nodes
CPT/HCPCS: 36415; 80053; 84153; 84403; 85025

== ENCOUNTER 2022-11-25 11:20 | Outpatient (CLI) | payer MEDICAID, SELFPAY ==
[2022-11-25 11:29] LABS: Abs Immature Grans 0.04 10^3/uL (0.0-0.06); Absolute Basophil Count 0.05 10^3/uL (0.0-0.2); Absolute Eosinophil Count 0.03 10^3/uL (0.0-0.7); Absolute Lymphocyte Count 1.48 10^3/uL (1.2-3.4); Absolute Monocyte Count 0.49 10^3/uL (0.1-0.8); Absolute Neutrophil Count 3.06 10^3/uL (1.2-6.7); Eosinophils % 0.6; HCT 40.9 % (40.0-50.0); HGB 14.2 g/dL (13.5-17.5); Immature Grans % 0.8; Lymphocytes % 28.7; MCH 31.2 pg (27.0-33.0); MCHC 34.7 % (32.0-36.0); MCV 90 fL (80-95); Monocytes % 9.5; Neutrophils % 59.4; Platelet Count 142 10^3/uL (130-400); RBC 4.55 10^6/uL (4.36-5.78); RDW 12.5 % (11.8-14.1); RDW-SD 41.1 fL; WBC 5.15 10^3/uL (4.4-10.8)
[2022-11-25 12:02] LABS: ALT 25 U/L (16-63); AST 12 U/L (15-37); Albumin 4.2 g/dL (3.4-5.0); Alkaline Phosphatase 70 U/L (46-116); Anion Gap 9.2 mmol/L (3-11); BUN 18 mg/dL (7-18); Bilirubin, Total 0.4 mg/dL (0.2-1.0); CO2 27.8 mmol/L (21.0-32.0); CREATININE 0.8 mg/dL (0.70-1.30); Calcium 9.2 mg/dL (8.5-10.1); Chloride 100 mmol/L (98-107); Estimated GFR 99.44 (mL/min/1.73m2); Glucose 139 mg/dL (74-106); Potassium 4.2 mmol/L (3.5-5.1); Sodium 137 mmol/L (136-145); Total Protein 7.2 g/dL (6.4-8.2)
[2022-11-28 12:37] LABS: PSA, Ultrasensitive <0.01 ng/mL (<= 4.5)
[2022-11-30 16:10] LABS: Testosterone, Total <7.0 ng/dL (240-950)
== END 2022-11-25 11:21 | disposition home or self-care (01) ==
LOC: LBO 11:21
PROVIDERS: PCP Family Medicine; Visit Provider Nurse Practitioner Family
DX: C61 Malignant neoplasm of prostate (principal); C77.5 Secondary and unspecified malignant neoplasm of intrapelvic lymph nodes
CPT/HCPCS: 36415; 80053; 84153; 84403; 85025

== ENCOUNTER 2023-02-17 13:25 | Outpatient (CLI) | payer MEDICAID, SELFPAY ==
[2023-02-17 13:32] LABS: Abs Immature Grans 0.04 10^3/uL (0.0-0.06); Absolute Basophil Count 0.04 10^3/uL (0.0-0.2); Absolute Eosinophil Count 0.06 10^3/uL (0.0-0.7); Absolute Lymphocyte Count 1.12 10^3/uL (1.2-3.4); Absolute Monocyte Count 0.54 10^3/uL (0.1-0.8); Absolute Neutrophil Count 5.07 10^3/uL (1.2-6.7); Basophils % 0.6; Eosinophils % 0.9; HCT 41.6 % (40.0-50.0); HGB 14.3 g/dL (13.5-17.5); Immature Grans % 0.6; Lymphocytes % 16.3; MCH 31.5 pg (27.0-33.0); MCHC 34.4 % (32.0-36.0); MCV 92 fL (80-95); MPV 10.3 fL (8.0-11.0); Monocytes % 7.9; Neutrophils % 73.7; Platelet Count 172 10^3/uL (130-400); RBC 4.54 10^6/uL (4.36-5.78); RDW 12.6 % (11.8-14.1); RDW-SD 42.8 fL; WBC 6.87 10^3/uL (4.4-10.8)
[2023-02-17 13:59] LABS: ALT 22 U/L (16-63); AST 15 U/L (15-37); Albumin 4.6 g/dL (3.4-5.0); Alkaline Phosphatase 75 U/L (46-116); Anion Gap 10.5 mmol/L (3-11); BUN 18 mg/dL (7-18); Bilirubin, Total 0.6 mg/dL (0.2-1.0); CO2 26.5 mmol/L (21.0-32.0); Calcium 9.9 mg/dL (8.5-10.1); Chloride 100 mmol/L (98-107); Estimated GFR 84.57 (mL/min/1.73m2); Glucose 105 mg/dL (74-106); Potassium 3.9 mmol/L (3.5-5.1); Sodium 137 mmol/L (136-145); Total Protein 7.7 g/dL (6.4-8.2)
[2023-02-20 10:56] LABS: PSA, Ultrasensitive <0.01 ng/mL (<= 4.5)
[2023-02-22 16:16] LABS: Testosterone, Total <7.0 ng/dL (240-950)
== END 2023-02-17 13:26 | disposition home or self-care (01) ==
LOC: LBO 13:25
PROVIDERS: Referring Provider Internal Medicine; Visit Provider Nurse Practitioner Family
DX: C61 Malignant neoplasm of prostate (principal); C77.5 Secondary and unspecified malignant neoplasm of intrapelvic lymph nodes
CPT/HCPCS: 36415; 80053; 84153; 84403; 85025

== ENCOUNTER 2023-05-17 01:59 | Outpatient (CLI) | payer MEDICAID, SELFPAY ==
[2023-05-17 11:29] LABS: Abs Immature Grans 0.02 10^3/uL (0.0-0.06); Absolute Basophil Count 0.04 10^3/uL (0.0-0.2); Absolute Eosinophil Count 0.17 10^3/uL (0.0-0.7); Absolute Monocyte Count 0.44 10^3/uL (0.1-0.8); Absolute Neutrophil Count 2.77 10^3/uL (1.2-6.7); Basophils % 0.9; Eosinophils % 3.7; HCT 38.9 % (40.0-50.0); HGB 13.3 g/dL (13.5-17.5); Immature Grans % 0.4; Lymphocytes % 24.2; MCH 30.8 pg (27.0-33.0); MCHC 34.2 % (32.0-36.0); MCV 90 fL (80-95); MPV 10.3 fL (8.0-11.0); Monocytes % 9.7; Neutrophils % 61.1; Platelet Count 149 10^3/uL (130-400); RBC 4.32 10^6/uL (4.36-5.78); RDW 12.6 % (11.8-14.1); RDW-SD 41.5 fL; WBC 4.54 10^3/uL (4.4-10.8)
[2023-05-17 12:05] LABS: ALT 17 U/L (16-63); AST 14 U/L (15-37); Albumin 3.9 g/dL (3.4-5.0); Alkaline Phosphatase 75 U/L (46-116); Anion Gap 10.6 mmol/L (3-11); BUN 13 mg/dL (7-18); Bilirubin, Total 0.5 mg/dL (0.2-1.0); CO2 26.4 mmol/L (21.0-32.0); CREATININE 0.9 mg/dL (0.70-1.30); Calcium 9.4 mg/dL (8.5-10.1); Chloride 101 mmol/L (98-107); Estimated GFR 95.97 (mL/min/1.73m2); Glucose 150 mg/dL (74-106); Potassium 3.8 mmol/L (3.5-5.1); Sodium 138 mmol/L (136-145); Total Protein 6.9 g/dL (6.4-8.2)
[2023-05-18 17:18] LABS: PSA, Ultrasensitive <0.01 ng/mL (<= 4.5)
[2023-05-20 19:08] LABS: Testosterone, Total <7.0 ng/dL (240-950)
== END 2023-05-17 02:00 | disposition home or self-care (01) ==
PROVIDERS: Visit Provider Nurse Practitioner Adult Health
DX: C61 Malignant neoplasm of prostate (principal); C77.5 Secondary and unspecified malignant neoplasm of intrapelvic lymph nodes; Z79.818 Long term (current) use of other agents affecting estrogen receptors and estrogen levels
CPT/HCPCS: 80053; 84153; 84403; 85025

== ENCOUNTER 2023-08-03 19:42 | Inpatient (IN) | payer MEDICAID, SELFPAY ==
[2023-08-03] VITALS (51 sets, daily range): BP systolic 125–210; BP diastolic 69–188; PULSE 91–189; RESP 13–30; TEMP 36.9; O2SAT 95–100
--- NOTE | 2023-08-03 19:45 | RT.EKG_ITS ---
APPROVED REPORT Exam: Resting ECG Reason for Exam: Palpitations Patient Location: E HR:158 bpm ECG Measurements Heart Rate 158 AXIS AK 115 P 46 QRSd 89 QRS 66 QT 296 T 263 QTc 480 Conclusion Supraventricular tachycardia...V-rate>(220-age), QRSd<120 Repolarization abnormality, prob rate related...ST dep, T neg, tachycardia
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
[2023-08-03] MEDS: dilTIAZem 25 MG/5 ML VIAL 10 MG IVP ×2 (20:19→20:28)
[2023-08-03 20:24] LABS: Abs Immature Grans 0.01 10^3/uL (0.0-0.06); Absolute Basophil Count 0.03 10^3/uL (0.0-0.2); Absolute Lymphocyte Count 0.99 10^3/uL (1.2-3.4); Absolute Neutrophil Count 4.03 10^3/uL (1.2-6.7); Basophils % 0.5; Eosinophils % 1.8; HCT 41.6 % (40.0-50.0); HGB 14.3 g/dL (13.5-17.5); Immature Grans % 0.2; Lymphocytes % 17.5; MCH 31.2 pg (27.0-33.0); MCHC 34.4 % (32.0-36.0); MCV 91 fL (80-95); MPV 11.7 fL (8.0-11.0); Monocytes % 8.8; Neutrophils % 71.2; Platelet Count 148 10^3/uL (130-400); RBC 4.58 10^6/uL (4.36-5.78); RDW 13.1 % (11.8-14.1); RDW-SD 43.4 fL; WBC 5.66 10^3/uL (4.4-10.8)
[2023-08-03 20:45] LABS: ALT 22 U/L (16-63); AST 14 U/L (15-37); Albumin 4.3 g/dL (3.4-5.0); Alkaline Phosphatase 80 U/L (46-116); Anion Gap 8.8 mmol/L (3-11); BUN 19 mg/dL (7-18); Bilirubin, Total 0.4 mg/dL (0.2-1.0); CO2 27.2 mmol/L (21.0-32.0); CREATININE 1.3 mg/dL (0.70-1.30); Calcium 9.9 mg/dL (8.5-10.1); Chloride 103 mmol/L (98-107); Estimated GFR 61.35 (mL/min/1.73m2); Glucose 181 mg/dL (74-106); Magnesium 2.1 mg/dL (1.8-2.4); Potassium 3.3 mmol/L (3.5-5.1); Sodium 139 mmol/L (136-145); Total Protein 7.8 g/dL (6.4-8.2); Troponin I < 50 ng/L (<or=60)
[2023-08-03] MEDS: dilTIAZem CD 120 MG CAPCR PO (20:55)
[2023-08-03] MEDS: dilTIAZem 125 MG in Normal Saline 100 ML IV (21:29)
[2023-08-03] MEDS: dilTIAZem 25 MG/5 ML VIAL 20 MG IVP (21:31)
[2023-08-03] MEDS: Metoprolol 5 MG/5 ML VIAL IVP (22:10)
[2023-08-03] MEDS: Potassium Chloride Liquid 20 MEQ PKT PO (23:05)
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
[2023-08-03 23:33] LABS: Source Nasal/Nares
[2023-08-04] VITALS (71 sets, daily range): BP systolic 116–162; BP diastolic 69–100; PULSE 59–131; RESP 11–24; TEMP 36.3–37.3; O2SAT 90–99
[2023-08-04 00:02] LABS: COVID-19 PCR Negative (Negative)
[2023-08-04 00:07] LABS: Troponin I < 50 ng/L (<or=60)
--- NOTE | 2023-08-04 00:07 | W.PC.ACHO ---
Registration Status: REG ER Primary Language: Preferred Language: Bulgarian ED Information & Data Chief Complaint Palpitatns 08/03/23 20:22 Triage Note has a racing heart. monday08/03/23 19:47 fell on his hot wood stove while carrying firewood.- caught inside of his L elbow - burned inside of upper L arm.has stage 4 prostate ca. Most Recent Vital Signs Temperature 36.9 C 08/03/23 19:47 Temperature Source Temporal Artery Scan 08/03/23 19:47 Pulse 121 H 08/04/23 00:01 Pulse 117 H 08/04/23 00:01 Respiratory Rate 14 08/04/23 00:01 Respiratory Effort Normal 08/03/23 19:55 Blood Pressure 140/95 H 08/04/23 00:01 Blood Pressure Mean 104 08/04/23 00:01 Blood Pressure Position Sitting 08/03/23 19:47 Pulse Oximetry 96 08/04/23 00:01 Oxygen Delivery Method Room Air 08/03/23 19:47 Oxygen Flow Rate 0 08/03/23 19:47 Pain Level 6 08/03/23 19:47 Allergies venom-honey bee [bee venom (honey bee)] Allergy (Severe, Verified 08/03/23 19:56) anaphylaxis Active Medications Generic Name Dose Route Start Last Admin Trade Name Freq PRN Reason Stop Dose Admin Diltiazem HCl 125 mg/ Sodium 125 mls @ 5 mls/hr 08/03/23 21:30 08/03/23 22:02 Chloride IV 10 mg/hr INFUSION YOLANDA 10 mls/hr Infusion 5 MG/HR IV IV Catheter Type [Right Saline Lock Antecubital] IV Catheter Type [Left Saline Lock Antecubital] IV Catheter Gauge [Right 18 Antecubital] IV Catheter Gauge [Left 18 Antecubital] Diet Orders Category Date Time Status Heart Healthy Eating [DIET] Nutrition 08/04/23 Breakfast Active Diagnostics 08/04/23 08/03/23 08/03/23 Range/Units 05:35 23:30 22:48 WBC Pending (4.4-10.8) 10^3/uL RBC Pending (4.36-5.78) 10^6/uL Hgb Pending (13.5-17.5) g/dL Hct Pending (40.0-50.0) % MCV Pending (80-95) fL MCH Pending (27.0-33.0) pg MCHC Pending (32.0-36.0) % RDW Pending (11.8-14.1) % Plt Count Pending (130-400) 10^3/uL MPV Pending (8.0-11.0) fL Immature Gran % Neutrophils % Lymphocytes % Monocytes % Eosinophils % Basophils % Nucleated RBC % (0.0-0.3) % Absolute Neutrophils (1.2-6.7) 10^3/uL Absolute Lymphocytes (1.2-3.4) 10^3/uL Absolute Monocytes (0.1-0.8) 10^3/uL Absolute Eosinophils (0.0-0.7) 10^3/uL Absolute Basophils (0.0-0.2) 10^3/uL Sodium Pending (136-145) mmol/L Potassium Pending Cancelled (3.5-5.1) mmol/L Chloride Pending (98-107) mmol/L Carbon Dioxide Pending (21.0-32.0) mmol/L Anion Gap Pending (3-11) mmol/L BUN Pending (7-18) mg/dL Creatinine Pending (0.70-1.30) mg/dL Est GFR (CKD-EPI 2020) Pending (mL/min/1.73m2) Glucose Pending (74-106) mg/dL Calcium Pending (8.5-10.1) mg/dL Magnesium (1.8-2.4) mg/dL Total Bilirubin Pending (0.2-1.0) mg/dL AST Pending (15-37) U/L ALT Pending (16-63) U/L Alkaline Phosphatase Pending (46-116) U/L Troponin I Pending Pending (<or=60) ng/L Total Protein Pending (6.4-8.2) g/dL Albumin Pending (3.4-5.0) g/dL COVID-19 Source Nasal/Nares SARS-CoV-2 (PCR) Pending Add-On Test Request Pending 08/03/23 Range/Units 20:18 WBC 5.66 (4.4-10.8) 10^3/uL RBC 4.58 (4.36-5.78) 10^6/uL Hgb 14.3 (13.5-17.5) g/dL Hct 41.6 (40.0-50.0) % MCV 91 (80-95) fL MCH 31.2 (27.0-33.0) pg MCHC 34.4 (32.0-36.0) % RDW 13.1 (11.8-14.1) % Plt Count 148 (130-400) 10^3/uL MPV 11.7 H (8.0-11.0) fL Immature Gran % 0.2 Neutrophils % 71.2 Lymphocytes % 17.5 Monocytes % 8.8 Eosinophils % 1.8 Basophils % 0.5 Nucleated RBC % 0.0 (0.0-0.3) % Absolute Neutrophils 4.03 (1.2-6.7) 10^3/uL Absolute Lymphocytes 0.99 L (1.2-3.4) 10^3/uL Absolute Monocytes 0.50 (0.1-0.8) 10^3/uL Absolute Eosinophils 0.10 (0.0-0.7) 10^3/uL Absolute Basophils 0.03 (0.0-0.2) 10^3/uL Sodium 139 (136-145) mmol/L Potassium 3.3 L (3.5-5.1) mmol/L Chloride 103 (98-107) mmol/L Carbon Dioxide 27.2 (21.0-32.0) mmol/L Anion Gap 8.8 (3-11) mmol/L BUN 19 H (7-18) mg/dL Creatinine 1.3 (0.70-1.30) mg/dL Est GFR (CKD-EPI 2020) 61.35 (mL/min/1.73m2) Glucose 181 H (74-106) mg/dL Calcium 9.9 (8.5-10.1) mg/dL Magnesium 2.1 (1.8-2.4) mg/dL Total Bilirubin 0.4 (0.2-1.0) mg/dL AST 14 L (15-37) U/L ALT 22 (16-63) U/L Alkaline Phosphatase 80 (46-116) U/L Troponin I < 50 (<or=60) ng/L Total Protein 7.8 (6.4-8.2) g/dL Albumin 4.3 (3.4-5.0) g/dL COVID-19 Source SARS-CoV-2 (PCR) Add-On Test Request Intake and Output - 24 Hour Total 08/03/23 19:42 thru 08/03/23 22:02 Intake Total 2.75 Output Total 200 Balance -197.25 Weight 83.461 kg Intake: IV 2.75 Output: Urine 200 Falls Risk Assessment History of Falls No History 08/03/23 21:24 Contributing Factors No Factors 08/03/23 21:24 Ambulatory Aids Independent 08/03/23 21:24 Tubes/Lines None 08/03/23 21:24 Gait Evaluation No gait disturbance 08/03/23 21:24 Cognition No cognitive impairment 08/03/23 21:24 Fall Total Score 0 08/03/23 21:24 Level of Risk Standard/Low Risk 08/03/23 21:24 Problems (Last Reviewed 08/03/23 @ 23:09 by Morgan Corona) Prostate cancer (Chronic) Atrial fibrillation with RVR (Acute) Atrial fibrillation, new onset (Acute) HTN (hypertension) (Chronic) v v v v v v v v v Sending and/or Receiving Nurses: Please use comment section below to note any information pertinent to the patient hand-off not included above. Information / Comments: burn left arm and hip burn form fall Monday on wood stove - cleaned and dressed in ed. 110-140 hr cardizem bolus and drip running Report received from:London Maloney RN all questions answered
--- NOTE | 2023-08-04 01:45 | RT.EKG_ITS ---
APPROVED REPORT Exam: Resting ECG Reason for Exam: coverts to sinus in ed before admit to icu Patient Location: I HR:71 bpm ECG Measurements Heart Rate 71 AXIS AR 164 P 17 QRSd 98 QRS 33 QT 427 T 47 QTc 465 Conclusion Sinus rhythm...normal P axis, V-rate 50- 99 Normal Electrocardiogram
[2023-08-04] MEDS: Metoprolol 12.5 MG TAB 25 MG PO ×4 (02:02→23:13)
[2023-08-04 02:54] LABS: Lab Add On Test DONE
[2023-08-04 06:54] LABS: HCT 39.1 % (40.0-50.0); HGB 13.4 g/dL (13.5-17.5); MCH 31.4 pg (27.0-33.0); MCHC 34.3 % (32.0-36.0); MCV 92 fL (80-95); Platelet Count 111 10^3/uL (130-400); RBC 4.27 10^6/uL (4.36-5.78); RDW 13.2 % (11.8-14.1); RDW-SD 44.2 fL; WBC 6.57 10^3/uL (4.4-10.8)
[2023-08-04 07:18] LABS: ALT 16 U/L (16-63); AST 18 U/L (15-37); Albumin 3.4 g/dL (3.4-5.0); Alkaline Phosphatase 59 U/L (46-116); Anion Gap 12.3 mmol/L (3-11); BUN 13 mg/dL (7-18); Bilirubin, Total 0.5 mg/dL (0.2-1.0); CO2 22.7 mmol/L (21.0-32.0); CREATININE 0.7 mg/dL (0.70-1.30); Calcium 9.1 mg/dL (8.5-10.1); Chloride 101 mmol/L (98-107); Estimated GFR 102.89 (mL/min/1.73m2); Glucose 121 mg/dL (74-106); Potassium 3.6 mmol/L (3.5-5.1); Sodium 136 mmol/L (136-145); Total Protein 6.4 g/dL (6.4-8.2); Troponin I < 50 ng/L (<or=60)
--- NOTE | 2023-08-04 08:00 | DI.US_ITS ---
APPROVED REPORT EXAM: Comprehensive 2D, Doppler, and color-flow Echocardiogram Patient Location: In-Patient Room/Bed: 220 Escalator Constructor: Cam Fletcher RDCS (AE) Indications: new onset afib with RVR Other Information Study Quality: Adequate Conclusion Normal left ventricular wall thickness and chamber size. Ejection fraction is 55 to 60%. Wall motio n is normal Normal right ventricular size and systolic function Both atria are normal in size Mild mitral annular calcification, mild mitral regurgitation Wall motion Left Ventricle The left ventricle is normal size. The left ventricular systolic function is normal. The left ventric ular ejection fraction is within the normal range. There is normal left ventricular wall thickness. T here is normal LV segmental wall motion. There is no ventricular septal defect visualized. LVEF is 55 -60%. Right Ventricle The right ventricle is normal size. The right ventricular systolic function is normal. Unable to asse ss PA pressure. Atria The left atrium size is normal. The right atrium size is normal. The interatrial septum is intact wit h no evidence for an atrial septal defect. Aortic Valve The aortic valve is normal in structure. Aortic valve is trileaflet. There is no aortic valvular sten osis. No aortic regurgitation is present. Mitral Valve The mitral valve is normal in structure. Mild mitral annular calcification. No evidence of mitral devon ve stenosis. Mild mitral regurgitation. Tricuspid Valve The tricuspid valve is normal in structure. There is no tricuspid valve stenosis. Trace tricuspid reg urgitation. Pulmonic Valve The pulmonary valve is normal in structure. There is no pulmonic valvular stenosis. There is no pulmo kervin valvular regurgitation. Great Vessels The aortic root is normal in size. The ascending aorta is normal in size. Aortic arch is normal in ca liber. IVC is normal in size and collapses >50% with inspiration. Pericardium There is no pericardial effusion. 2D Dimensions IVSD d PLAX 0.78 cm M: 0.6-1.2 Ao Root d 3.29 cm M: 3.1 - 3.7 LVPW d PLAX 0.98 cm M: 0.6 - 1.2 Ao Asc Diam d 3.44 cm M: 2.6 - 3.4 LVID d PLAX 5.48 cm M: 4.2 - 5.8 LVDs 3.72 cm M: 2.5 - 4.0 LV EF Teichholz 59.7 % FS 32.09 % LV EDV (Teich) 146.5 mL LV ESV (Teich) 59.1 mL Stroke Vol Index (Teich) 43.50 Auto EF LV EDV A4C 126.2 mL LV EDV A2C 108.4 mL LV EDV BP LV ESV A4C 54.8 mL LV ESV A2C 47.4 mL LV ESV BP LVEF(%) A4C 56.6 % LVEF(%) A2C 56.2 % LVEF(%) BP LV SV A4C 71.5 ml LV SV A2C 61.0 ml LV SV BP LV CO A4C 4.9 L/min LV CO A2C 4.3 L/min LV CO BP HR A4C 68.71 BPM HR A2C 70.59 BPM LV EDV Index (BP) LA Volume LA Length A4C 5.2 cm LA Length A2C LA Area A4C s 13.65 cm2 LA Area A2C s LA Vol A4C A-L 30.66 mL LA Vol A2C A-L LA Vol Biplane A-L LA Vol A4C MOD 28.8 mL LA Vol A2C MOD LA Vol BP MOD RA Volume RA Area A4C 11.8 cm2 RA ESV A4C (A-L) 22.1mL RA Vol/BSA A4C A-L RA Length A4C 5.3 cm RA ESV A4C (MOD) 22.0mL LV Diastology MV E' medial 0.115 (>0.07 m/s) MV E Vmax 0.75 (0.4-1.3 m/s) MV E/E' MED 6.50 (<14) MV A Vmax 0.60 (0.4-1.3 m/s) MV E' lateral 0.115 (>0.1 m/s) E/A Ratio 1.3 MV E/E' LAT 6.55 (<14) MV E' Average 0.115 m/s MV E/E'(average) 6.53 Aortic Valve AoV Vmax 1.18 m/s LVOT Vmax 1.08 m/s AoV Peak Grad 5.6 mmHg LVOT Peak Grad 4.7 mmHg AoV Area (Vmax) 3.01 cm2 LVOT VTI 0.232 m AoV VTI 0.277 m LVOT Mean Grad 2.5 mmHg AoV Mean Sanju. 0.86 m/s LVOT SV 76.32 mL AoV Mean Grad 3.3 mmHg LVOT Diam s 2.00 cm AoV Area (VTI) 2.76 cm2 Velocity Ratio 0.92 Mitral Valve MV DT 119 (160-240 msec) Pulmonary Valve PV Vmax 0.89 (0.5-1.5 m/s) RVOT Vmax 0.57 m/s PV Peak Grad 3.2 mmHg RVOT Peak Gr. 1.3 mmHg PV Mean Sanju 0.58 m/s RVOT VTI 0.128 m PV Mean Grad 1.6 mmHg RVOT Mean Gr. 0.7 mmHg
--- NOTE | 2023-08-04 08:37 | PDOC.CMIN ---
Date of service: 08/04/23 Time of Service: 08:37 Care Management Initial Assmt Initial Assessment REASON FOR HOSPITALIZATION:: atrial fibrillation with RVR PREVIOUS FUNCTIONAL STATUS/SOCIAL/FAMILY SUPPORTS:: Rodolfo lives in a single family home in [place] with his daughter. 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 He is independent at baseline and lives an active lifestyle. Rodolfo does not receive any services nor does he require any assistive devices. CURRENT FUNCTIONAL STATUS:: Rodolfo was sitting up in a chair when CM met with him. He was polite but a bit guarded in his responses, asking what the purpose of the questions were. 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 He has one child, a daughter that attends [employer], and shared that they are very close. Rodolfo stated that he was suppose to pick her up in [place] today for the iday break and is disappointed that he remains hospitalized. He requested an early discharge in the morning if possible. CM communicated his request to the provider. ADVANCE DIRECTIVES:: none on file Has patient been provided with info about the portal/API?: Yes Did the patient sign up for the portal?: No CODE STATUS:: Full Code INSURANCE COVERAGE / FINANCIAL ISSUES:: Medicaid CURRENT HOME/COMMUNITY SERVICES/EQUIPMENT:: none PRIMARY CARE PHYSICIAN:: Trey Giraldo POTENTIAL DISCHARGE NEEDS:: follow up with PCP and plan of care PATIENT/FAMILY EDUCATION NEEDS:: Review of discharge instructions, limitations, activity., follow up plan, discuss Ask Me Three TRANSPORTATION:: via private vehicle PLAN:: Anticipate Rodolfo will discharge home with no new services. He will follow up with his PCP and plan of care and transport with family. CM will continue to support Rodolfo and assess for discharge needs. PFSH All Active Problems (Updated 08/05/23 @ 09:30 by Laura Montoya MD) Superficial burn of left hip (Acute) Superficial burn of left upper extremity (Acute) Prostate cancer (Chronic) Atrial fibrillation with RVR (Acute) Atrial fibrillation, new onset (Acute) Microscopic hematuria (Acute) HTN (hypertension) (Chronic) Social History Smoking/Tobacco Use Status: Never Smoking risk assessment performed?: Yes Alcohol Intake: never Drug use: Never Substance use type: does not use Housing: house Do you feel safe at home: Yes Do you feel safe in your relationship?: Yes
[2023-08-04] MEDS: amLODIPine 5 MG TAB PO (09:01)
[2023-08-04] MEDS: Aspirin E.C. 81 MG TABEC PO (09:01)
[2023-08-04] MEDS: Enoxaparin 40 MG/0.4 ML SYR SC (10:09)
--- NOTE | 2023-08-04 10:20 | PGE_ITS ---
Date of Service Date of service: 08/04/23 Time of Service: 10:22 Assessment and Plan Assessment and plan (1) Atrial fibrillation with RVR: Start date: 08/03/23 Status: Acute Assessment and plan: -presented with new onset atrial fibrillation and rapid ventricular response -responded to medical therapy with IV diltiazem ongoing and oral metoprolol being advanced. -no longer requiring dilt drip -has chronic hypertension which presently is exacerbated. -Patient will continue to have his medications adjusted with advancing metop rolol for blood pressure control and heart rate control with patient atrial fibrillation. -He is on Lovenox but this will be converted to Eliquis prior to discharge with counseling. -Echocardiogram should be updated. (2) HTN (hypertension): Status: Chronic Assessment and plan: -Slightly exacerbated with patient to have metoprolol advanced for blood pressure control and rate control with atrial fibrillation with appear to be paroxysmal. Qualifiers: Hypertension type: primary hypertension Qualified Code(s): I10 - Essential (primary) hypertension (3) Prostate cancer: Status: Chronic Assessment and plan: -Patient has stage IV metastatic prostate cancer on treatment and it presently appears to be stable. Subjective Subjective Interval history since last seen: Patient states that he feels much better this morning as compared to admission. It was explained to him what atrial fibrillation is the treatment course going forward including rate control medication as well as anticoagulation prevention of clot formation. Exam Narrative Exam Narrative: Well-appearing older gentleman sitting up in the chair and eating breakfast, no acute distress, ANO x4, heart regular rate rhythm, lungs clear to auscultation bilaterally Objective Last Vital Signs Temp 98.2 F 08/04/23 08:00 Pulse 70 08/04/23 07:01 Resp 15 08/04/23 08:00 BP 116/85 08/04/23 07:01 Pulse Ox 98 08/04/23 08:00 Laboratory Results - last 24 hr 08/03/23 08/03/23 08/03/23 20:18 22:48 23:30 WBC 5.66 RBC 4.58 Hgb 14.3 Hct 41.6 MCV 91 MCH 31.2 MCHC 34.4 RDW 13.1 Plt Count 148 MPV 11.7 H Immature Gran % 0.2 Neutrophils % 71.2 Lymphocytes % 17.5 Monocytes % 8.8 Eosinophils % 1.8 Basophils % 0.5 Nucleated RBC % 0.0 Absolute Neutrophils 4.03 Absolute Lymphocytes 0.99 L Absolute Monocytes 0.50 Absolute Eosinophils 0.10 Absolute Basophils 0.03 Sodium 139 Potassium 3.3 L Cancelled Chloride 103 Carbon Dioxide 27.2 Anion Gap 8.8 BUN 19 H Creatinine 1.3 Est GFR (CKD-EPI 2020) 61.35 Glucose 181 H Calcium 9.9 Magnesium 2.1 Total Bilirubin 0.4 AST 14 L ALT 22 Alkaline Phosphatase 80 Troponin I < 50 < 50 Total Protein 7.8 Albumin 4.3 COVID-19 Source Nasal/Nares SARS-CoV-2 (PCR) Negative Add-On Test Request DONE 08/04/23 05:56 WBC 6.57 RBC 4.27 L Hgb 13.4 L Hct 39.1 L MCV 92 MCH 31.4 MCHC 34.3 RDW 13.2 Plt Count 111 L MPV 12.0 H Immature Gran % Neutrophils % Lymphocytes % Monocytes % Eosinophils % Basophils % Nucleated RBC % Absolute Neutrophils Absolute Lymphocytes Absolute Monocytes Absolute Eosinophils Absolute Basophils Sodium 136 Potassium 3.6 Chloride 101 Carbon Dioxide 22.7 Anion Gap 12.3 H BUN 13 Creatinine 0.7 Est GFR (CKD-EPI 2020) 102.89 Glucose 121 H Calcium 9.1 Magnesium Total Bilirubin 0.5 AST 18 ALT 16 Alkaline Phosphatase 59 Troponin I < 50 Total Protein 6.4 Albumin 3.4 COVID-19 Source SARS-CoV-2 (PCR) Add-On Test Request PAWSS Have you Been Recently Intoxicated or Drunk Within the Last 30 days?: No Have you Ever Experienced Previous Episodes of Alcohol Withdrawal?: No Have you ever Experienced Withdrawal Seizures?: No Have you ever Experienced Delirium Tremens(DT)s?: No Have you ever undergone Alcohol Rehabilitation Treatment (i.e, inpt ot outpatient treatment programs)?: No Have you ever Experienced Blackouts?: No Have you ever Combined Alcohol with other Downers within the last 90 days?: No Have you ever Combined Alcohol with any other Substance of Abuse during the last 90 days?: No Evidence of Increased Autonomic Activity (i.e. HR>120, tremor, sweating, agitation, nausea)?: No Result: 0 Time Spent with Patient Time Spent with Patient: >50 minutes Time was spent: preparing to see the patient(eg.review tests), obtaining and/or reviewing separately [facility], ordering medications,tests, procedures, referring, communicating with other health career specialist, indepentently interpreting results, counseling the patient and care coordination
--- NOTE | 2023-08-04 11:58 | PHA.REVIEW2 ---
Pharmacy Admission Review Admission Clinical Review Admission Pharmacy Review: Atrial fibrillation with RVR (Acute) Atrial fibrillation, new onset (Acute) venom-honey bee [bee venom (honey bee)] Allergy (Severe, Verified 08/03/23 19:56) anaphylaxis Resuscitation Status Full Code Height 5 ft 10 in Weight 86.9 kg Comments Comments/Follow Ups: Watch BP, HR, K+, plts, labs and for med changes. Nursing is checking to see if pt's own abiraterone and candesartan can be brought in for pt's own use. Pharmacy Admission Review Renal Dosing Renal Dosing: BUN 13 mg/dL (7-18) 08/04/23 05:56 Creatinine 0.7 mg/dL (0.70-1.30) 08/04/23 05:56 Medications needing adjustments: Reviewed (Crcl ~91.7 mL/min current meds okay) Anticoagulation Anticoagulation: Hgb 13.4 g/dL (13.5-17.5) L 08/04/23 05:56 Hct 39.1 % (40.0-50.0) L 08/04/23 05:56 Plt Count 111 10^3/uL (130-400) L 08/04/23 05:56 Creatinine 0.7 mg/dL (0.70-1.30) 08/04/23 05:56 DVT Prophylaxis: Reviewed Medications: Enoxaparin Opiate Usage Evaluate Pain Scale/Pains Meds: N/A Relevant Labs Relevant Labs: Sodium 136 mmol/L (136-145) 08/04/23 05:56 Potassium 3.6 mmol/L (3.5-5.1) 08/04/23 05:56 Chloride 101 mmol/L (98-107) 08/04/23 05:56 Magnesium 2.1 mg/dL (1.8-2.4) 08/03/23 20:18 Electrolytes, C-Reactive P, ESR: Reviewed (K+ improved) DM Control DM Control: Reviewed (No DM noted in pt's medical history, no A1c on file) Cardiac Review Cardiac Review: Troponin I < 50 ng/L (<or=60) 08/04/23 05:56 BP, HR, EF%: Reviewed (BP and HR currently both within normal limits.) QTc Review QTc: Reviewed (QTc 465 on admission) IV to PO Switch IV Medications: Reviewed Home Meds Home Med List reviewed: Reviewed Relevent Home Meds Not ordered & why?: epinephrine (PRN), leuprolide ([id number]) Current Meds Current Medication Order Review: Intervened (Discontinued duplicate med orders ) Comments Comments/Follow Ups: Watch BP, HR, K+, plts, labs and for med changes. Nursing is checking to see if pt's own abiraterone and candesartan can be brought in for pt's own use.
--- NOTE | 2023-08-04 16:39 | CHAPLAIN ---
Rodolfo was moved from the ICU to Med/Surg this afternoon. He was up in the chair when I visited, and pleasantly engaged in conversation. He's hoping to be discharged tomorrow morning as he was suppose to mushroom picker his daughter at [facility] today and bring her to their home in [place] for a Thanksgiving break. I explained my role and offered support.
[2023-08-05 06:00] VITALS: BP 122/81; PULSE 66; RESP 18; TEMP 36.7; O2SAT 96
[2023-08-05] MEDS: Metoprolol 12.5 MG TAB 25 MG PO (06:00)
[2023-08-05 06:57] VITALS: BP 147/82; PULSE 62; RESP 22; TEMP 36.9; O2SAT 99
[2023-08-05 08:36] LABS: Anion Gap 7.4 mmol/L (3-11); BUN 14 mg/dL (7-18); CO2 26.6 mmol/L (21.0-32.0); CREATININE 0.7 mg/dL (0.70-1.30); Calcium 9.3 mg/dL (8.5-10.1); Chloride 101 mmol/L (98-107); Estimated GFR 102.89 (mL/min/1.73m2); Glucose 133 mg/dL (74-106); Magnesium 2.2 mg/dL (1.8-2.4); Potassium 3.5 mmol/L (3.5-5.1); Sodium 135 mmol/L (136-145); TSH (W/Ref FT4) 1.76 uIU/mL (0.36-3.74)
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
[2023-08-05] MEDS: amLODIPine 5 MG TAB PO (09:15)
[2023-08-05] MEDS: Aspirin E.C. 81 MG TABEC PO (09:15)
[2023-08-05] MEDS: Metoprolol CR 100 MG TABCR PO (09:16)
--- NOTE | 2023-08-05 14:33 | PDOC.CMDIS ---
Date of service: 08/05/23 Time of Service: 14:33 LACE Index Scoring Tool Questions: Length of Stay (in days): 2 Was the patient admitted via the E.D.?: Yes Comorbidities: Any Tumor E.D. Visits: 1 Answers: Total Score: 8 Risk of Readmission: Low Risk Care Management Discharge Plan Reason for Hospitalization: atrial fibrillation with RVR Discharge Plan: Rodolfo will discharge home with no new services. He will follow up with his PCP and plan of care and transport with family. Patient/Family Education Needs: Review of discharge instructions, limitations, activity., follow up plan, discuss Ask Me Three
== END 2023-08-05 10:45 | disposition home or self-care (01) | DRG 310 ==
LOC: ER 23:37 → ICU 08-04 00:19 → MS 08-04 15:09
PROVIDERS: Internal Medicine; Admitting Provider Family Medicine; Emergency Provider Emergency Medicine; PCP Family Medicine; Visit Provider Family Medicine
DX: I48.91 Unspecified atrial fibrillation (principal); I10 Essential (primary) hypertension; C61 Malignant neoplasm of prostate; R31.29 Other microscopic hematuria; Z79.899 Other long term (current) drug therapy; X15.0XXA Contact with hot stove (kitchen), initial encounter; I34.0 Nonrheumatic mitral (valve) insufficiency; T24.112A Burn of first degree of left thigh, initial encounter; T22.132A Burn of first degree of left upper arm, initial encounter
CPT/HCPCS: 00123; 36415; 80048; 80053; 85027; 87635; 93005; 93270; 96365; 96366; 96375; 96376; 99291; J1650; 83735; 84132; 84443; 84484; 85025; 93010; 93306; 99223; 99233; 99239; J3490

== ENCOUNTER 2023-08-07 04:22 | Outpatient (CLI) | payer MEDICAID, SELFPAY ==
[2023-08-07 12:01] LABS: Abs Immature Grans 0.02 10^3/uL (0.0-0.06); Absolute Basophil Count 0.03 10^3/uL (0.0-0.2); Absolute Eosinophil Count 0.12 10^3/uL (0.0-0.7); Absolute Lymphocyte Count 1.12 10^3/uL (1.2-3.4); Absolute Monocyte Count 0.43 10^3/uL (0.1-0.8); Absolute Neutrophil Count 2.29 10^3/uL (1.2-6.7); Basophils % 0.7; HCT 39.1 % (40.0-50.0); HGB 13.4 g/dL (13.5-17.5); Immature Grans % 0.5; Lymphocytes % 27.9; MCH 30.9 pg (27.0-33.0); MCHC 34.3 % (32.0-36.0); MCV 90 fL (80-95); MPV 10.8 fL (8.0-11.0); Monocytes % 10.7; Neutrophils % 57.2; Platelet Count 133 10^3/uL (130-400); RBC 4.33 10^6/uL (4.36-5.78); RDW 12.8 % (11.8-14.1); RDW-SD 42.7 fL; WBC 4.01 10^3/uL (4.4-10.8)
[2023-08-07 12:28] LABS: ALT 20 U/L (16-63); AST 17 U/L (15-37); Albumin 3.8 g/dL (3.4-5.0); Alkaline Phosphatase 73 U/L (46-116); Anion Gap 6.9 mmol/L (3-11); BUN 16 mg/dL (7-18); Bilirubin, Total 0.4 mg/dL (0.2-1.0); CO2 27.1 mmol/L (21.0-32.0); CREATININE 0.7 mg/dL (0.70-1.30); Calcium 9.2 mg/dL (8.5-10.1); Chloride 101 mmol/L (98-107); Estimated GFR 102.89 (mL/min/1.73m2); Glucose 137 mg/dL (74-106); Potassium 3.9 mmol/L (3.5-5.1); Sodium 135 mmol/L (136-145); Total Protein 7.1 g/dL (6.4-8.2)
[2023-08-09 22:27] LABS: PSA, Ultrasensitive <0.01 ng/mL (<= 4.5)
[2023-08-11 12:18] LABS: Testosterone, Total <7.0 ng/dL (240-950)
== END 2023-08-07 04:23 | disposition home or self-care (01) ==
PROVIDERS: PCP Family Medicine; Visit Provider Nurse Practitioner Adult Health
DX: C61 Malignant neoplasm of prostate (principal); C77.5 Secondary and unspecified malignant neoplasm of intrapelvic lymph nodes; Z79.818 Long term (current) use of other agents affecting estrogen receptors and estrogen levels
CPT/HCPCS: 36415; 80053; 84153; 84403; 85025

== ENCOUNTER 2023-08-08 07:57 | Outpatient (CLI) | payer MEDICAID, SELFPAY ==
--- NOTE | 2023-08-08 07:45 | RT.EKG_ITS ---
APPROVED REPORT Exam: Resting ECG Reason for Exam: afib Patient Location: O HR:82 bpm ECG Measurements Heart Rate 82 AXIS MN 143 P 36 QRSd 91 QRS 21 QT 399 T 23 QTc 466 Conclusion Sinus rhythm...normal P axis, V-rate 50- 99 Baseline wander in lead(s) I,II,aVR,V1,V2,V6 I have reviewed and I agree with the emergency room physician's ECG interpretation.
== END 2023-08-08 07:58 | disposition home or self-care (01) ==
LOC: DI.CARD 07:57
PROVIDERS: PCP Family Medicine; Visit Provider Internal Medicine Cardiovascular Disease
DX: I48.91 Unspecified atrial fibrillation (principal)
CPT/HCPCS: 93010

== ENCOUNTER 2023-08-25 07:53 | Outpatient (CLI) | payer MEDICAID, SELFPAY ==
--- NOTE | 2023-08-25 08:45 | W.CARDEVENT ---
Date of service: 08/25/23 Time of Service: 08:45 Cardiac Event Recorder Referring Provider:: Trey Giraldo Indications:: Atrial fibrillation Cardiac Event Note: This is a cardiac event monitor ordered for atrial fibrillation Patient was monitored for 1 day and 16 hours Rhythm throughout was sinus with an average heart rate of 77. Maximum heart rate was 103. There was no bradycardia No atrial fibrillation was seen There were no other dysrhythmias recorded
== END 2023-08-25 07:54 | disposition home or self-care (01) ==
LOC: CARDOPNVT 07:53
PROVIDERS: PCP Family Medicine; Visit Provider Internal Medicine Cardiovascular Disease
DX: I48.91 Unspecified atrial fibrillation (principal)

== ENCOUNTER 2024-02-06 05:14 | Outpatient (CLI) | payer MEDICAID, SELFPAY ==
[2024-02-06 10:27] LABS: Abs Immature Grans 0.02 10^3/uL (0.0-0.06); Absolute Basophil Count 0.02 10^3/uL (0.0-0.2); Absolute Eosinophil Count 0.06 10^3/uL (0.0-0.7); Absolute Lymphocyte Count 1.08 10^3/uL (1.2-3.4); Absolute Monocyte Count 0.72 10^3/uL (0.1-0.8); Absolute Neutrophil Count 2.65 10^3/uL (1.2-6.7); Basophils % 0.4 %; Eosinophils % 1.3 %; HCT 43.7 % (40.0-50.0); HGB 14.5 g/dL (13.5-17.5); Immature Grans % 0.4 %; Lymphocytes % 23.7 %; MCHC 33.2 % (32.0-36.0); MCV 91 fL (80-95); MPV 10.4 fL (8.0-11.0); Monocytes % 15.8 %; Neutrophils % 58.4 %; Platelet Count 141 10^3/uL (130-400); RBC 4.83 10^6/uL (4.36-5.78); RDW 12.9 % (11.8-14.1); RDW-SD 42.8 fL; WBC 4.55 10^3/uL (4.4-10.8)
[2024-02-06 10:41] LABS: ALT 36 U/L (16-63); AST 26 U/L (15-37); Alkaline Phosphatase 59 U/L (46-116); Anion Gap 5.6 mmol/L (3-11); BUN 13 mg/dL (7-18); Bilirubin, Total 0.5 mg/dL (0.2-1.0); CO2 29.4 mmol/L (21.0-32.0); CREATININE 0.8 mg/dL (0.70-1.30); Calcium 9.1 mg/dL (8.5-10.1); Chloride 98 mmol/L (98-107); Estimated GFR 98.83 (mL/min/1.73m2); Glucose 125 mg/dL (74-106); Potassium 4.4 mmol/L (3.5-5.1); Sodium 133 mmol/L (136-145); Total Protein 7.2 g/dL (6.4-8.2)
[2024-02-08 12:47] LABS: PSA, Ultrasensitive <0.01 ng/mL (<= 4.5)
[2024-02-10 17:10] LABS: Testosterone, Total 7.9 ng/dL (240-950)
== END 2024-02-06 05:15 | disposition home or self-care (01) ==
LOC: LBO 05:14
PROVIDERS: PCP Family Medicine; Visit Provider Nurse Practitioner
DX: C61 Malignant neoplasm of prostate (principal); C77.5 Secondary and unspecified malignant neoplasm of intrapelvic lymph nodes
CPT/HCPCS: 36415; 80053; 84153; 84403; 85025

== ENCOUNTER → 2024-03-01 00:42 | Outpatient (CLI) | payer MEDICAID, SELFPAY ==
--- NOTE | 2024-03-01 11:19 | DI.RAD_ITS ---
Exam(s) XR KNEE LT 3V AP,LAT,MARITO EXAM: XR KNEE LT 3V AP,LAT,MARITO CLINICAL HISTORY: LT KNEE PAIN, M25.562. TECHNIQUE: 2D digital imaging was performed. COMPARISON: No exams were available for comparison FINDINGS: 3 views No evidence of fracture or joint effusion. Bone density normal. No osseous lesions. No joint space narrowing. No osteochondral defects. IMPRESSION: No significant osseous findings in the knee. No joint effusion evident. DATA REPOSITORY: RADIATION DOSE DELIVERED:
== END ==
PROVIDERS: PCP Family Medicine; Visit Provider Family Medicine
DX: M25.562 Pain in left knee (principal)
CPT/HCPCS: 73562

== ENCOUNTER 2024-06-20 01:55 | Outpatient (CLI) | payer MEDICARE, MEDICAID, SELFPAY ==
[2024-06-20 11:34] LABS: Abs Immature Grans 0.04 10^3/uL (0.0-0.06); Absolute Basophil Count 0.05 10^3/uL (0.0-0.2); Absolute Eosinophil Count 0.13 10^3/uL (0.0-0.7); Absolute Lymphocyte Count 1.34 10^3/uL (1.2-3.4); Absolute Monocyte Count 0.69 10^3/uL (0.1-0.8); Absolute Neutrophil Count 5.29 10^3/uL (1.2-6.7); Basophils % 0.7 %; Eosinophils % 1.7 %; HCT 39.5 % (40.0-50.0); HGB 13.4 g/dL (13.5-17.5); Immature Grans % 0.5 %; Lymphocytes % 17.8 %; MCH 31.4 pg (27.0-33.0); MCHC 33.9 % (32.0-36.0); MCV 93 fL (80-95); MPV 10.6 fL (8.0-11.0); Monocytes % 9.2 %; Neutrophils % 70.1 %; Platelet Count 157 10^3/uL (130-400); RBC 4.27 10^6/uL (4.36-5.78); RDW 13.2 % (11.8-14.1); RDW-SD 44.6 fL; WBC 7.54 10^3/uL (4.4-10.8)
[2024-06-20 11:56] LABS: ALT 32 U/L (16-63); AST 19 U/L (15-37); Albumin 4.2 g/dL (3.4-5.0); Alkaline Phosphatase 70 U/L (46-116); Anion Gap 8.8 mmol/L (3-11); BUN 21 mg/dL (7-18); Bilirubin, Total 0.36 mg/dL (0.2-1.0); CO2 28.2 mmol/L (21.0-32.0); Calcium 9.2 mg/dL (8.5-10.1); Chloride 97 mmol/L (98-107); Estimated GFR 84.05 (mL/min/1.73m2); Glucose 133 mg/dL (74-106); Potassium 4.5 mmol/L (3.5-5.1); Sodium 134 mmol/L (136-145); Total Protein 7.5 g/dL (6.4-8.2)
[2024-06-22 13:35] LABS: PSA, Ultrasensitive 0.02 ng/mL (<= 4.5)
[2024-06-23 13:37] LABS: Testosterone, Total 31 ng/dL (240-950)
== END 2024-06-20 01:56 | disposition home or self-care (01) ==
LOC: LBO 01:55
PROVIDERS: PCP Family Medicine; Visit Provider Nurse Practitioner
DX: C61 Malignant neoplasm of prostate (principal); C77.5 Secondary and unspecified malignant neoplasm of intrapelvic lymph nodes
CPT/HCPCS: 36415; 80053; 84153; 84403; 85025

== ENCOUNTER 2025-04-10 10:55 | Outpatient (CLI) | payer MEDICARE, SELFPAY ==
[2025-04-10 10:28] LABS: Abs Immature Grans 0.03 10^3/uL (0.0-0.06); HCT 41.0 % (40.0-50.0); HGB 13.7 g/dL (13.5-17.5); Immature Grans % 0.5 %; MCH 30.9 pg (27.0-33.0); MCHC 33.4 % (32.0-36.0); MCV 92 fL (80-95); MPV 10.7 fL (8.0-11.0); Platelet Count 142 10^3/uL (130-400); RBC 4.44 10^6/uL (4.36-5.78); RDW 13.3 % (11.8-14.1); RDW-SD 45.6 fL; WBC 6.30 10^3/uL (4.4-10.8)
[2025-04-10 10:49] LABS: ALT 29 U/L (16-63); AST 20 U/L (15-37); Albumin 4.2 g/dL (3.4-5.0); Alkaline Phosphatase 55 U/L (46-116); Anion Gap 7.7 mmol/L (3-11); BUN 16 mg/dL (7-18); Bilirubin, Total 0.7 mg/dL (0.2-1.0); CO2 28.3 mmol/L (21.0-32.0); Calcium 9.1 mg/dL (8.5-10.1); Chloride 97 mmol/L (98-107); Estimated GFR 94.78 (mL/min/1.73m2); Glucose 139 mg/dL (74-106); Potassium 4.2 mmol/L (3.5-5.1); Sodium 133 mmol/L (136-145); Total Protein 7.2 g/dL (6.4-8.2)
== END 2025-04-10 10:56 | disposition home or self-care (01) ==
LOC: LBO 10:56
PROVIDERS: PCP Family Medicine; Visit Provider Nurse Practitioner
DX: C61 Malignant neoplasm of prostate (principal); C77.5 Secondary and unspecified malignant neoplasm of intrapelvic lymph nodes
CPT/HCPCS: 36415; 80053; 84153; 84403; 85025

== ENCOUNTER 2025-04-21 07:49 | Outpatient (CLI) | payer MEDICARE, SELFPAY | END 2025-04-21 07:50 | disposition home or self-care (01) | LOC: DI.CARD 07:49 | PROVIDERS: PCP Family Medicine; Visit Provider Registered Nurse | CPT/HCPCS: 93010 ==

== ENCOUNTER 2025-04-30 07:58 | Outpatient (CLI) | payer MEDICARE, SELFPAY ==
--- NOTE | 2025-04-30 07:45 | RT.EKG_ITS ---
APPROVED REPORT Exam: Resting ECG Reason for Exam: PAF Patient Location: O HR:53 bpm ECG Measurements Heart Rate 53 AXIS RI 189 P 161 QRSd 101 QRS 8 QT 459 T 34 QTc 431 Conclusion Sinus or ectopic atrial rhythm...P axis (-45,135) Atrial premature complex...SV complex w/ short R-R interval Otherwise normal ECG
== END 2025-04-30 07:59 | disposition home or self-care (01) ==
LOC: DI.CARD 07:58
PROVIDERS: PCP Family Medicine; Visit Provider Registered Nurse
DX: I48.0 Paroxysmal atrial fibrillation (principal)
CPT/HCPCS: 93010

== ENCOUNTER → 2025-04-30 09:19 | Outpatient (BNVA) | payer MEDICARE, SELFPAY | PROVIDERS: PCP Family Medicine; Visit Provider Registered Nurse | DX: I48.0 Paroxysmal atrial fibrillation (principal); Z79.01 Long term (current) use of anticoagulants | CPT/HCPCS: 99215; 93005 ==

== ENCOUNTER 2025-06-06 02:06 | Outpatient (CLI) | payer MEDICARE, SELFPAY ==
--- NOTE | 2025-06-06 | DI.US_ITS ---
Exam(s) US BREAST LT COMPLETE MAMMO DIAGNOSTIC BI EXAM: MAMMO DIAGNOSTIC BI and U/S breast LT complete CLINICAL HISTORY: LT BREAST MASS N63.20 GYNECOMASTIA N62. TECHNIQUE: Craniocaudal and mediolateral oblique Full Field Digital Mammography views with Computer Aided Diagnosis followed by Tomosynthesis and left breast ultrasound. All 4 quadrants of the left breast were evaluated sonographically in addition to the left axilla and left retroareolar region. COMPARISON: US US BREAST LT COMPLETE from 06/06/2025 FINDINGS: Mammography/Tomosynthesis: Masses/Architectural Distortion: There is fibroglandular tissue in the retroareolar regions bilaterally consistent with gynecomastia. There is a well- circumscribed nodule in the upper outer quadrant of the left breast. Its appearance raises a question of an intraparenchymal lymph node. Microcalcifictions: No suspicious pleomorphic-type are seen. Skin Thickening/Nipple Retraction: None. Complete left breast US: Echotexture: There is hypoechoic irregular soft tissue in the retroareolar region of the left breast consistent with gynecomastia. Shadowing: No suspicious foci. Cyst: None. Solid lesions: There is a well-circumscribed reniform shaped hypoechoic lesion at the 2 to 3 o'clock position of the left breast 4 cm from the nipple. There is blood flow seen in the echogenic zac region. The finding is most consistent with a lymph node. This corresponds to the mammographic finding. Ductal dilation: None. IMPRESSION: 1. No evidence of malignancy is noted. 2. Unless there is more urgent need, follow-up as per [employer] guidelines. 3. The findings were discussed with the patient on the date of the examination. BI-RADS Category 2 - Benign Findings Breast Density - Category B - There are scattered areas of fibroglandular density. Breast density Category C or D implies that the patient has dense breast tissue. Dense breast tissue can make it harder to find cancer on a mammogram. Dense breast tissue is also associated with an increased risk of breast cancer. This information about the result of the mammogram report was provided to the patient to raise their awareness. Use this report when you speak with the patient about their risks for breast cancer, which includes their family history. At that time, you may recommend additional screening tests (Ultrasound or MRI) as these tests may add significant information. A negative radiographic report should not delay biopsy if a dominant or clinically suspicious mass is present. Up to ten percent of cancers are not identified on mammography. A negative report may reinforce clinical impression. Adenosis and dense breasts may obscure an underlying neoplasm. False positive reports average 6 to 10%. Patient will receive a letter notifying them of these results.
== END 2025-06-06 02:26 ==
PROVIDERS: PCP Family Medicine; Visit Provider Family Medicine
DX: Z12.31 Encounter for screening mammogram for malignant neoplasm of breast (principal); N63.21 Unspecified lump in the left breast, upper outer quadrant; R92.323 Mammographic fibroglandular density, bilateral breasts
CPT/HCPCS: 76642; 77062; 77066; G0279